=== PATIENT | male | born 1965 | race African-American/Black ===

== ENCOUNTER → 2016-06-04 | Day surgery (SDC) | payer OTHER | END | disposition home or self-care (01) | LOC: JRADIR 10:39 | PROVIDERS: ATTEND Internal Medicine Infectious Disease | PROC: 0JPT0XZ Removal of Tunneled Vascular Access Device from Trunk Subcutaneous Tissue and Fascia, Open Approach (ICD-10-PCS; principal; 2016-06-04) | DX: Z45.2 Encounter for adjustment and management of vascular access device (principal) | CPT/HCPCS: 36589 ==

== ENCOUNTER 2016-11-07 12:58 | Day surgery (SDC) | payer OTHER ==
[2016-11-05 13:03] VITALS: BMI 30.8
[2016-11-07] MEDS ORDERED: LIDOCAINE HCL 1%, 10 MG/ML (20ML VIAL) ONE (13:17)
[2016-11-07] MEDS ORDERED: MINERAL OIL 25 ML OIL ONE (13:17)
[2016-11-07] MEDS ORDERED: MIDAZOLAM HCL 2 MG/2 ML SINGLE DOSE VIAL ONE (13:49)
[2016-11-07] MEDS ORDERED: PROPOFOL 20 ML ONE ×3 (14:01→14:39)
[2016-11-07] MEDS ORDERED: LIDOCAINE HCL/PF 2% SDV 5ML VIAL ONE (14:02)
[2016-11-07] MEDS ORDERED: ceFAZolin SODIUM 1 GM VIAL IVPB ONE (14:22)
[2016-11-07] MEDS ORDERED: ceFAZolin SODIUM 1 GM VIAL ONE ×2 (14:25)
[2016-11-07] MEDS ORDERED: SUCCINYLCHOLINE CHLORIDE 200 MG/10 ML VIAL ONE (14:43)
[2016-11-07] MEDS ORDERED: ONDANSETRON 4 MG/2 ML VIAL ONE (14:51)
[2016-11-07] MEDS ORDERED: MINERAL OIL 25 ML OIL TP ONE ×3 (14:53)
[2016-11-07] MEDS ORDERED: oxyCODONE HCL 5 MG TABLET PO PRN (15:16)
[2016-11-07] MEDS ORDERED: ONDANSETRON 4 MG/2 ML VIAL IVPUSH PRN (15:16)
--- NOTE | 2016-11-07 15:21 | OP ---
Operative Note - Note: Operative Date: 11/07/16 Pre-Operative Diagnosis: chronic wound left foot Operation: left foot STSG 30 cm squared Findings: clean granulating wound Implants: none Post-Operative Diagnosis: Same as Pre-op Surgeon: Chad Lew Anesthesia: General Specimens Removed: none Estimated Blood Loss (mls): 0
[2016-11-07] MEDS ORDERED: LACTATED RINGERS SOLUTION 1,000 ML IV SCH (15:30)
--- NOTE | 2016-11-07 16:12 | OP ---
DATE OF OPERATION: 11/07/2016 PREOPERATIVE DIAGNOSIS: Chronic left foot wound. POSTOPERATIVE DIAGNOSIS: Chronic left foot wound. PROCEDURE PERFORMED: Left foot split-thickness skin graft, 30 sq cm. SURGEON: Chad Lew MD VP CARDIOVASCULAR: None. ESTIMATED BLOOD LOSS: Minimal. SPECIMEN: None. DESCRIPTION OF PROCEDURE: Patient was brought to the operating room. Sedation was administered by anesthesia. Patient's left leg and foot were prepped and draped in the usual sterile fashion. The left foot wound was curetted and measured. It was 3 x 10 cm for a total of 30 sq cm. The left anterior thigh was prepped with mineral oil. A dermatome was selected the appropriate width, and a 3 x 10 cm piece of skin was shaved from the left anterior thigh on an 0.010 inch setting and the graft was meshed to a 1:1.5. Graft was then applied to the patient's left foot and secured in place using ezra. A Xeroform dressing was applied to both the foot and the harvest site, and 4 x 4's and Tegaderms were applied to the harvest site and a bolster and Kerlix and Rafa bandage were applied to the left foot, taking care not to disturb the skin graft. The patient was transferred to PACU in stable condition. Uri [id number] MTDD
[2016-11-07 16:50] VITALS: TEMP 97.6
[2016-11-07 18:05] VITALS: BP 148/81; PULSE 71
== END 2016-11-07 18:18 | disposition home or self-care (01) ==
LOC: JASU-SURG 12:58
PROVIDERS: ATTEND Surgery Vascular Surgery
PROC: 0HBJXZZ Excision of Left Upper Leg Skin, External Approach (ICD-10-PCS; 2016-11-07)
PROC: 0HRNX74 Replacement of Left Foot Skin with Autologous Tissue Substitute, Partial Thickness, External Approach (ICD-10-PCS; principal; 2016-11-07 14:00)
DX: S91.302D Unspecified open wound, left foot, subsequent encounter (principal)
CPT/HCPCS: 94760

== ENCOUNTER 2017-07-22 20:36 | Observation (INO) | payer OTHER ==
--- NOTE | 2017-07-22 21:10 | PDOC ---
History of Present Illness - History of Present Illness Initial Comments: 07/22/17 21:59 Patient is a 52 -year-old male, with a significant past medical history of diabetes mellitus and hypertension, who was BIBA presenting with hypoglycemia. Patient states that his last meal was around 3:30/4:00. He went to bed around 6/ 7:00. His grandmother states that she noticed he was in a catatonic state, his eyes were opened but he wasnt speaking and was acting very out of the ordinary. She called 911 and states that his blood sugar was very low. He was given glucose by EMS en route. He states that he last took his diabetes medications this morning. Surgical Hx: left foot (4 toes) amputation (2016) PCP: Vanessa Fuel Cell Engineer: Josué Raygoza He denies fever, chills, nausea, vomiting, diarrhea, abdominal pain. He denies changes in his medications. <Mariama Whitehead - Last Filed: 07/22/17 22:04> - General History Source: Patient Exam Limitations: No Limitations <Solange Alvarez - Last Filed: 07/23/17 00:15> - General Chief Complaint: Blood Sugar Problem Stated Complaint: Blood Sugar Problem Time Seen by Provider: 07/22/17 21:00 Past History <Mariama Whitehead - Last Filed: 07/22/17 22:04> - Past Medical History Anemia: No Asthma: No Cancer: No Cardiac Disorders: No CVA: No COPD: No Dementia: No Diabetes: Yes (non compliant with meds.) GI Disorders: No Disorders: No HTN: Yes (non-compliant with meds) Hypercholesterolemia: No Liver Disease: No Seizures: No Thyroid Disease: No - Immunization History Immunization Up to Date: Yes - Suicide/Smoking/Psychosocial Hx Smoking History: Never smoked Have you smoked in the past 12 months: No Information on smoking cessation initiated: No Hx Alcohol Use: No Drug/Substance Use Hx: No Substance Use Type: None Hx Substance Use Treatment: No <Solange Alvarez - Last Filed: 07/23/17 00:15> - Past Medical History Allergies/Adverse Reactions: Allergies Allergy/AdvReac Type Severity Reaction Status Date / Time No Known Allergies Allergy Verified 07/22/17 20:57 Home Medications: Ambulatory Orders Atenolol [Tenormin -] 50 mg PO BID #60 tablet 03/26/16 Furosemide [Lasix] 40 mg PO DAILY 11/05/16 Glipizide [Glipizide ER] 2.5 mg PO DAILY 11/05/16 Linezolid 600 mg PO DAILY 11/05/16 Lisinopril [Prinivil] 5 mg PO DAILY 11/05/16 Nifedipine ER [Procardia XL -] 90 mg PO DAILY 11/05/16 Sodium Bicarbonate - 650 mg PO DAILY 11/05/16 Review of Systems - Review of Systems Comments:: GENERAL/CONSTITUTIONAL: +diaphoresis. No: fever, chills, weakness, loss of appetite. HEAD, EYES, EARS, NOSE AND THROAT: No: change in vision, ear pain, discharge, sore throat, throat swelling. CARDIOVASCULAR: No: chest pain, lightheadedness, palpitations, syncope RESPIRATORY: No: cough, shortness of breath, wheezing, hemoptysis, stridor. GASTROINTESTINAL: No: nausea, vomiting, abdominal cramping, diarrhea, rectal bleeding, constipation. GENITOURINARY: No: dysuria, hematuria, frequency, urgency, flank pain. MUSCULOSKELETAL: No: back pain, neck pain, joint pain, muscle swelling or pain SKIN: No: lesions, pallor, rash or easy bruising. NEUROLOGIC: No: headache, vertigo, paresthesias, weakness ENDOCRINE: No: unexplained weight gain or loss HEMATOLOGIC/LYMPHATIC: No: anemia, easy bleeding, swelling nodes 07/22/17 21:59 <Mariama Whitehead - Last Filed: 07/22/17 22:04> *Physical Exam - Vital Signs Last Vital Signs Temp Pulse Resp BP Pulse Ox 98.4 F 81 16 140/77 96 07/22/17 20:54 07/22/17 20:54 07/22/17 20:54 07/22/17 20:54 07/22/17 20:54 - Physical Exam Comments: 07/22/17 22:05 GENERAL: The patient is in no acute distress. HEAD: Normal with no signs of trauma. EYES: PERRLA, EOMI, sclera anicteric, conjunctiva clear. ENT: Ears normal, nares patent, oropharynx clear without exudates. Moist mucous membranes. NECK: Normal range of motion, supple without lymphadenopathy, JVD, or masses. LUNGS: Breath sounds equal, clear to auscultation bilaterally. No wheezes, and no crackles. HEART:Regular rate and rhythm, normal S1 and S2 without murmur, rub or gallop. ABDOMEN: Soft, nontender, normoactive bowel sounds. No guarding, no rebound. EXTREMITIES: Left foot s/p multiple toe amputations. Wound healing nicely, clear , no drainage. Normal range of motion, no edema. No clubbing or cyanosis. No erythema, or tenderness. NEUROLOGICAL: Cranial nerves II through XII grossly intact. Normal speech. No focal neurological deficits. MUSCULOSKELETAL: Back nontender to palpation, no CVA tenderness SKIN: Warm, Dry, normal turgor, no rashes or lesions noted. <Mariama Whitehead - Last Filed: 07/22/17 22:04> - Vital Signs Last Vital Signs Temp Pulse Resp BP Pulse Ox 98.4 F 81 16 140/77 96 07/22/17 20:54 07/22/17 20:54 07/22/17 20:54 07/22/17 20:54 07/22/17 20:54 <Solange Alvarez - Last Filed: 07/23/17 00:15> Heart Score/ECG Review - History History: Slightly suspicious - Electrocardiogram EKG: Normal - Age Age: 45-65 - Risk Factors Risk Factors Heart Score: Yes Hx Hypercholesterolemia, Yes Hx Hypertension, Yes Hx Diabetes, Yes Hx Obesity Based on the list above the patient has:: >/=3 risk factors or Hx atherosclerotic disease - Troponin Troponin: </= normal limit - Score Heart Score - Total: 3 <Solange Alvarez - Last Filed: 07/23/17 00:15> ED Treatment Course - LABORATORY CBC & Chemistry Diagram: 07/22/17 21:47 07/22/17 21:55 <Mariama Whitehead - Last Filed: 07/22/17 22:04> - LABORATORY CBC & Chemistry Diagram: 07/22/17 21:47 07/22/17 21:55 <Solange Alvarez - Last Filed: 07/23/17 00:15> Medical Decision Making - Medical Decision Making 07/22/17 21:23 Mr Kenney is a 52 yo M with a history of NIDDM, HTN, PVD s/p multiple toe amputations of the left foot He presents to the ER stating that this evening, his grandmother noted that he was "Talking crazy" EMS called Pt Blood Sugar noted to be 40 Pt given IV glucose Pt presents to the ER and is more coherent He tells me that he took his Glipizide this morning He had lunch at approximately 3 pm He then took a nap at 6pm He was noted by his grandmother at about 8pm to be diaphoretic and staring, not appropriately responsive No new meds No insulin No chest pain, abdominal pain, shortness of breath, nausea, vomiting, diarrhea Pt is awake and oriented He is able to answer all of my questions RRR CTA No abd tenderness Left foot amputation site, clean, no drainage Will do: Basic labs EKG Feed Anticipate discharge 07/22/17 22:18 EKG: NSR, rate of 70 bpm, axis nml, intervals nml, no st elevations or depressions 07/22/17 22:19 Laboratory Tests 07/22/17 21:47 WBC 5.8 Hgb 11.6 L Hct 34.8 L Plt Count 225 07/22/17 22:52 Laboratory Tests 05/20/17 07/01/17 07/22/17 10:21 12:00 21:47 WBC 5.8 5.8 Hgb 11.6 L D 11.6 L Hct 34.8 L 34.8 L Plt Count 241 225 Sodium 141 Potassium 5.1 Chloride 111 H Carbon Dioxide 25 Anion Gap 5 L BUN 50 H Creatinine 2.5 H Random Glucose 112 H Creatine Kinase Troponin I 07/22/17 07/22/17 21:55 21:55 WBC Hgb Hct Plt Count Sodium 138 Potassium 5.1 Chloride 108 H Carbon Dioxide 23 Anion Gap 7 L BUN 54 H Creatinine 2.5 H Random Glucose 88 D Creatine Kinase 513 H Troponin I 0.18 H D 07/23/17 00:13 Case reviewed with Hospitalist Will plan to place on observation Will closely monitor blood glucose and will repeat trop Clinical Impression: hypoglycemia, initial presentation Indeterminant troponin, initial presentation <Solange Alvarez - Last Filed: 07/23/17 00:15> *DC/Admit/Observation/Transfer - Attestations Scribe Attestion: 07/22/17 22:06 Documentation prepared by Mariama Whitehead, acting as director medical science for Solange Alvarez MD. <Mariama Whitehead - Last Filed: 07/22/17 22:04> - Discharge Dispostion Decision to Admit order: Yes <Solange Alvarez - Last Filed: 07/23/17 00:15> Diagnosis at time of Disposition: Hypoglycemia, Troponin level elevated - Discharge Dispostion Condition at time of disposition: Stable - Referrals Referrals: Jose David Mendez MD [Primary Care Provider] - - Patient Instructions - Post Discharge Activity
[2017-07-22 22:06] LABS: BASO % 0.8 % (0-2.0); EOS % 1.1 % (0-4.5); HEMATOCRIT 34.8 % (35.4-49); HEMOGLOBIN 11.6 GM/dL (11.7-16.9); LYMPH % 22.1 % (8-40); MCHC 33.3 g/dl (32.0-35.9); MEAN PLT VOLUME 9.1 fl (7.5-11.1); MONO % 5.8 % (3.8-10.2); NEUT % 70.2 % (42.8-82.8); PLATELET COUNT 225 K/MM3 (134-434); RBC 3.74 M/mm3 (4.00-5.60); WHITE BLOOD COUNT 5.8 K/mm3 (4.0-10.0)
[2017-07-22 22:37] LABS: ALBUMIN 2.9 g/dl (3.4-5.0); ANION GAP 7 (8-16); BILIRUBIN,TOTAL 0.2 mg/dL (0.2-1.0); BLOOD UREA NITROGEN 54 mg/dL (7-18); CALCIUM 8.3 mg/dL (8.5-10.1); CHLORIDE 108 mmol/L (98-107); CO2 23 mmol/L (21-32); CREATININE 2.5 mg/dL (0.7-1.3); GLUCOSE,RANDOM 88 mg/dL (74-106); POTASSIUM 5.1 mmol/L (3.5-5.1); SGOT/AST 52 U/L (15-37); SGPT/ALT 54 U/L (12-78); SODIUM 138 mmol/L (136-145); TOT PROT 6.8 g/dl (6.4-8.2)
[2017-07-22 22:38] LABS: ALK PHOS 89 U/L (45-117)
--- NOTE | 2017-07-23 01:06 | PN ---
Teaching Attending Note Name of Resident: Miley Camacho ATTENDING PHYSICIAN STATEMENT I saw and evaluated the patient. I reviewed the resident's note and discussed the case with the resident. I agree with the resident's findings and plan as documented. SUBJECTIVE: Patient is a 52 -year-old man, with a significant past medical history of diabetes mellitus, amputation of left foot toes 2 to 5 and hypertension, who presented with symptomatic hypoglycemia. Patient states that his last meal was around 3:30/4:00. He went to bed around 6/7:00. His grandmother states that she noticed he was in a catatonic state, diaphoretic, his eyes were opened but he wasnt speaking and was acting very out of the ordinary. She called 911 and states that his blood sugar was very low. He was given glucose by EMS en route. He states that he last took his diabetes medications this morning. OBJECTIVE: Alert and in no acute distress. Vital Signs Period Temp Pulse Resp BP Sys/Melara Pulse Ox Last 24 Hr 98.4 F 81 16 140/77 96 HEENT: No Jaundice, eye redness or discharge, PERRLA, EOMI. Normocephalic, atraumatic. External ears are normal and hearing is grossly intact. No nasal discharge. Neck: Supple, nontender. No palpable adenopathy or thyromegaly. No JVD Chest: Good effort. Clear to auscultation and percussion. Heart: Regular. No S3, rub or murmur Abdomen: Not distended, soft, nontender and no HSM. No rebound or guarding. Normoactive bowel sounds. Ext: Amputation of toes 2 to 5 on the left foot with dystrophic changes on the big toe; hyperpigmented skin with stasis dermatitis changes. Poor peripheral pulses. No pitting leg edema. Skin: Warm and dry. No petechiae, rash or ecchymosis. Neuro: Alert. Oriented x3. CN 2-12 grossly intact. Sensation grossly intact in all four extremities and DTR are symmetric. Home Medications Medication Instructions Recorded Atenolol [Tenormin -] 50 mg PO BID #60 tablet 03/26/16 Furosemide [Lasix] 40 mg PO DAILY 11/05/16 Glipizide [Glipizide ER] 2.5 mg PO DAILY 11/05/16 Linezolid 600 mg PO DAILY 11/05/16 Lisinopril [Prinivil] 5 mg PO DAILY 11/05/16 Nifedipine ER [Procardia XL -] 90 mg PO DAILY 11/05/16 Sodium Bicarbonate - 650 mg PO DAILY 11/05/16 Abnormal Lab Results 07/22/17 07/22/17 07/22/17 21:47 21:55 21:55 RBC 3.74 L Hgb 11.6 L Hct 34.8 L Chloride 108 H Anion Gap 7 L BUN 54 H Creatinine 2.5 H Calcium 8.3 L AST 52 H Creatine Kinase 513 H CK-MB (CK-2) 9.391 H Troponin I 0.18 H D Albumin 2.9 L ASSESSMENT AND PLAN: 1. Symptomatic hypoglycemia - Patient will be admitted as an observation. Hypoglycemia most likely due reduced insulin catabolism and excretion by failing kidneys. Needs reduced dose of Januvia and glipizide and continue frequent assessments for dose reduction as his CKD progresses. 2. CKD stage 3 - Likely due to NIDDM. Has gotten eye care and foot care. CKD likely cause of anemia, but will do basic anemia work up and exclude GI blood loss. Improve BP control to slow progression of CKD. 3. Elevated troponin - Likely due to CKD and possibly demand ischemia. Will get serial EKG and troponins. No other evidence of ACS at this time. 4. DVT prophylaxis - Heparin 5000u sq tid 5. Advance directives - Full code
--- NOTE | 2017-07-23 01:12 | HP ---
CHIEF COMPLAINT: altered mental state, hypoglycemia PCP: Dr. Mendez Printing Pressman: Dr. Cheema Renal: Dr. Raygoza Ward Service Supervisor: Dr. Guevara HISTORY OF PRESENT ILLNESS: 52yo man with PMH of HTN, HLD, NIDDM, PVD s/p partial L foot amputation (2015), CKD stage 3, possible diastolic CHF who BIBA after patient was noted be obtunded and found to have BG 42 at ~6PM Friday (07/22). Patient checks his BG every morning and reports that it was been ~100. Recalls last time was hypoglycemic was during hospitalization in 2016. He took Januvia and Glipizide as directed in the morning (denies any extra or recent skipped doses) and ate a typical lunch at 3PM. At ~6PM patient's grandmother, with whom he lives with, found him diaphoretic, shaking, confused, and hypoglycemic. She called 911 and on arrival EMS gave the patient 1 amp of glucose. Patient was recently started on Januvia 1-2 months ago. His previous regimen was Glipizide and Trajenta, but the later was no longer covered by his insurance. Denies any fever, chills, nausea, vomiting, abdominal pain, or urinary symptoms. No chest pain, palpitations, increased fatigue or weakness, or leg swelling. While in the ED, patient's mental status improved and repeat BG was 88. Labs were notable for mildly elevated Troponin I (0.18) with normal EKG. 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 Guevara) Social History: does not work, lives with grandmother, walks with rolling walker at baseline Smoking: never Alcohol: social Drugs: none Family History: non-contributory Allergies: No Known Allergies Allergy (Verified 07/22/17 20:57) HOME MEDICATIONS: Home Medications Medication Instructions Recorded Atenolol [Tenormin -] 50 mg PO BID #60 tablet 03/26/16 Furosemide [Lasix] 40 mg PO DAILY 11/05/16 Glipizide [Glipizide ER] 2.5 mg PO DAILY 11/05/16 Linezolid 600 mg PO DAILY 11/05/16 Lisinopril [Prinivil] 5 mg PO DAILY 11/05/16 Nifedipine ER [Procardia XL -] 90 mg PO DAILY 11/05/16 Sodium Bicarbonate - 650 mg PO DAILY 11/05/16 REVIEW OF SYSTEMS CONSTITUTIONAL: +diaphoresis Absent: fever, chills, generalized weakness, malaise, loss of appetite, weight change HEENT: Absent: rhinorrhea, nasal congestion, throat pain, throat swelling, difficulty swallowing, mouth swelling, ear pain, eye pain, visual changes CARDIOVASCULAR: Absent: chest pain, syncope, palpitations, irregular heart rate, lightheadedness , peripheral edema RESPIRATORY: Absent: cough, shortness of breath, dyspnea with exertion, orthopnea, wheezing, stridor, hemoptysis GASTROINTESTINAL: Absent: abdominal pain, abdominal distension, nausea, vomiting, diarrhea, constipation, melena, hematochezia GENITOURINARY: Absent: dysuria, frequency, urgency, hesitancy, hematuria, flank pain, genital pain MUSCULOSKELETAL: Absent: myalgia, arthralgia, joint swelling, back pain, neck pain SKIN: Absent: rash, itching, pallor HEMATOLOGIC/IMMUNOLOGIC: Absent: easy bleeding, easy bruising, lymphadenopathy, frequent infections ENDOCRINE: Absent: unexplained weight gain, unexplained weight loss, heat intolerance, cold intolerance NEUROLOGIC: +mental status changes Absent: headache, focal weakness or paresthesias, dizziness, unsteady gait, seizure, , bladder or bowel incontinence PSYCHIATRIC: Absent: anxiety, depression, suicidal or homicidal ideation, hallucinations. PHYSICAL EXAMINATION Vital Signs - 24 hr 07/22/17 20:54 Temperature 98.4 F Pulse Rate 81 Respiratory 16 Rate Blood Pressure 140/77 O2 Sat by Pulse 96 Oximetry (%) GENERAL: aaox3, nad HEENT: PERRL, EOMI, sclera anicteric, conjunctiva clear, oropharynx clear without exudates, mmm NECK: supple LUNGS: CTAB HEART: rrr, normal s1/s2, no m/r/g ABDOMEN: soft, NTND UPPER EXTREMITIES: 2+ radial pulses, wwp, no edema LOWER EXTREMITIES: 2+ DP pulses, wwp, chronic venous stasis dermatitis L >R with hyperpigmentation and crusting, +discoloration and thickening of toe nails , no erythema, ulcers, or edema NEUROLOGICAL: Cranial nerves II-XII intact. Normal speech. PSYCHIATRIC: Cooperative. Good eye contact. Appropriate mood and affect. SKIN: Warm, dry, normal turgor, no rashes or lesions noted CBC, BMP 07/22/17 21:47 07/22/17 21:55 Troponin, BNP 07/22/17 21:55 Troponin I 0.18 H D EKG: NSR, rate 70, normal axis, intervals, no acute ischemic ST/T abnormalities , QTc 436 ASSESSMENT/PLAN: 52yo man with PMH of HTN, HLD, NIDDM, PVD s/p partial L foot amputation (2015), CKD stage 3 who presents with symptomatic hypoglycemia and found to have mildly elevated Troponin. #symptomatic hypoglycemia, likely 2/2 to worsening renal function -Hold patient's oral diabetic agents, will need to be discharged with close follow-up for adjustment in medication as CKD progresses -BGM ACHS #tropinemia, (0.18), likely due to CKD and/or demand ischemia; low suspicion for ACS given EKG wnl, lack of symptoms, Heart score 3, will observe to r/o -Serial Troponins -Repeat EKG in AM #HTN - home meds need to be confirmed with Pharmacy in AM -Patient endorsed following meds to be resumed in AM: * Atenolol 50mg BID * Procardia Xl 90mg PO qd * Lasix 40mg PO qd #normocytic anemia, likely from CKD -Check Fe studies -Stool guaiac #CKD stage 3 #FEN PO intake lytes wnl Na/DM diet #PPX DVT - early ambulation, SCD's B/L #DISPO: obs m/s FULL code d/w Dr. Faustin Visit type - Emergency Visit Emergency Visit: Yes ED Registration Date: 07/23/17 Care time: The patient presented to the Emergency Department on the above date and was hospitalized for further evaluation of their emergent condition. - New Patient This patient is new to me today: Yes Date on this admission: 07/23/17 - Critical Care Critical Care patient: No Hospitalist Screening - Colonoscopy Questionnaire Colonoscopy Questionnaire: Colonoscopy Questionnaire - Patient: 50 - 75 years old and never had a screening colonoscopy: Unknown History of colon or rectal polyps, or CA: Unknown History of IBD, Crohn's disease or UC: Unknown History of abdominal radiation therapy as a child: Unknown - Relative: 1 with colon or rectal CA, or polyps at age 60 or younger: Unknown Colon or rectal CA diagnosed at age 45 or younger: Unknown Multiple relatives with colon or rectal CA: Unknown - Outcome: Screening Result: Negative Screen
[2017-07-23] MEDS ORDERED: DEXTROSE 50%-WATER - 25 GM/50 ML VIAL IVPUSH ONE (02:22)
[2017-07-23] MEDS ORDERED: DEXTROSE 50%-WATER 25 GM/50 ML DISP.SYRIN ONE (02:37)
[2017-07-23] MEDS ORDERED: HEPARIN NA (PORCINE) 5,000 UNITS/ML 1ML VIAL ONE (06:02)
[2017-07-23] MEDS: HEPARIN NA (PORCINE) 5,000 UNITS/ML 1ML VIAL SQ SCH ×2 (06:26→15:11)
[2017-07-23 06:39] LABS: URINE APPEARANCE CLEAR; URINE BILIRUBIN NEGATIVE (<2.0 mg/dL); URINE COLOR STRAW; URINE GLUCOSE (UA) NEGATIVE (NEGATIVE); URINE KETONE NEGATIVE (NEGATIVE); URINE LEUK ESTERASE NEGATIVE (NEGATIVE); URINE NITRITE NEGATIVE (NEGATIVE); URINE UROBILINOGEN NEGATIVE mg/dL (0.2-1.0)
[2017-07-23] MEDS ORDERED: INSULIN SLIDING SCALE (NOVOLOG) 1 VIAL SQ SCH (07:00)
[2017-07-23 07:15] LABS: URINE PROTEIN 2+ (NEGATIVE)
[2017-07-23 07:25] LABS: URINE BACTERIA RARE /hpf (NONE SEEN)
[2017-07-23] MEDS ORDERED: ATENOLOL 50 MG TABLET (FP) PO SCH (10:00)
[2017-07-23] MEDS ORDERED: FUROSEMIDE 40 MG TABLET (FP) PO SCH (10:00)
[2017-07-23] MEDS ORDERED: NIFEdipine E.R. 90 MG TABLET (FP) PO SCH (10:00)
[2017-07-23 11:30] VITALS: BMI 29.7
--- NOTE | 2017-07-23 13:20 | EKG ---
Test Reason : Blood Pressure : / mmHG Vent. Rate : 078 BPM Atrial Rate : 078 BPM P-R Int : 204 ms QRS Dur : 084 ms QT Int : 374 ms P-R-T Axes : 071 057 086 degrees QTc Int : 426 ms NORMAL SINUS RHYTHM NORMAL ECG WHEN COMPARED WITH ECG OF 22-JUL-2017 21:47, NO SIGNIFICANT CHANGE WAS FOUND Confirmed by ANA BANKS MD ([id number]) on 07/23/2017 1:20:33 PM Referred By: Confirmed By:AAN BANKS MD
--- NOTE | 2017-07-23 13:22 | EKG ---
Test Reason : Blood Pressure : / mmHG Vent. Rate : 070 BPM Atrial Rate : 070 BPM P-R Int : 198 ms QRS Dur : 088 ms QT Int : 404 ms P-R-T Axes : 071 059 089 degrees QTc Int : 436 ms NORMAL SINUS RHYTHM NORMAL ECG WHEN COMPARED WITH ECG OF 24-OCT-2016 14:26, NO SIGNIFICANT CHANGE WAS FOUND Confirmed by ANA BANKS MD ([id number]) on 07/23/2017 1:22:05 PM Referred By: Confirmed By:ANA BANKS MD
[2017-07-23 13:24] VITALS: TEMP 98.4
--- NOTE | 2017-07-23 13:25 | CON.CARD ---
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 Pt improved in the ER and is now admitted. Pt seen and examined in the ICU in nad. awake alert and oriented. grandmother at bedside. states he is feeling back to baseline. denies chest pain, sob, palpitations. no pnd, orthopnea. no change in chronic intermittent b/l LE edema. - History Source History Provided By: Patient Limitations to Obtaining History: No Limitations - Past Medical History Cardio/Vascular: Yes: CHF, HTN, Hyperlipdemia, Other Infectious Disease: Yes: Other (OM) Endocrine: Yes: Diabetes Mellitus - Alcohol/Substance Use Hx Alcohol Use: No - Smoking History Smoking history: Never smoked Have you smoked in the past 12 months: No - Social History ADL: Independent History of Recent Travel: No Home Medications - Allergies Allergies/Adverse Reactions: Allergies Allergy/AdvReac Type Severity Reaction Status Date / Time No Known Allergies Allergy Verified 07/22/17 20:57 - Home Medications Home Medications: Ambulatory Orders Atenolol [Tenormin -] 50 mg PO BID #60 tablet 03/26/16 Furosemide [Lasix] 40 mg PO DAILY 11/05/16 Glipizide [Glipizide ER] 2.5 mg PO DAILY 11/05/16 Linezolid 600 mg PO DAILY 11/05/16 Lisinopril [Prinivil] 5 mg PO DAILY 11/05/16 Nifedipine ER [Procardia XL -] 90 mg PO DAILY 11/05/16 Sodium Bicarbonate - 650 mg PO DAILY 11/05/16 Family Disease History - Family Disease History Family Disease History: Diabetes: Grandparent Review of Systems - Review of Systems Constitutional: reports: Lethargy. denies: No Symptoms, Chills, Diaphoresis, Fever, Loss of Appetite, Malaise, Night Sweats, Unintentional Wgt. Loss, Weakness, Other Eyes: denies: No Symptoms, Blind Spots, Blurred Vision, Double Vision, Eye Pain , Floaters, Photophobia, Recent Change in Vision, Other HENT: denies: No Symptoms, Difficult Swallowing, Ear Discharge, Ear Pain, Epistaxis, Gingival Bleeding, Hearing Loss, Mouth Swelling, Nasal Congestion, Ocular Prosthesis, Throat Pain, Toothache, Ringing in Ears, Other Neck: denies: No Symptoms, Decreased ROM, Lumps, Pain on Movement, Stiffness, Swollen Glands, Tenderness, Other Cardiovascular: denies: No Symptoms, Chest Pain, Edema, Palpitations, Shortness of Breath, Other Respiratory: denies: No Symptoms, Cough, Exercise Intolerance, Hemoptysis, Orthopnea, PND, Snoring, SOB, SOB on Exertion, Wheezing, Other Gastrointestinal: denies: No Symptoms, Abdominal Pain, Bloating, Constipation, Diarrhea, Dysphagia, Indigestion, Melena, Nausea, Rectal Bleeding, Vomiting, Vomiting Blood, Other Genitourinary: denies: No Symptoms, Burning, Discharge, Dysuria, Flank Pain, Frequency, Hematuria, Incontinence, Lesions, Menses, Pain, Testicular Mass, Testicular Pain, Testicular Swelling, Urgency, Vaginal Bleeding, Other Breasts: denies: No Symptoms Reported, See HPI, Breast Implants, Discharge from Nipple, Lumps, Pain, Skin Changes, Other Musculoskeletal: denies: No Symptoms, Back Pain, Crepitus, Decreased ROM, Extremity Pain, Joint Pain, Joint Swelling, Muscle Pain, Muscle Cramps, Muscle Weakness, Other Integumentary: denies: No Symptoms, Blister, Bruising, Change in Color, Eczema, Erythema, Incision, Lesions, Lump, Pallor, Pruritis, Rash, Wound, Other Neurological: reports: Change in LOC. denies: No Symptoms, Change in Speech, Confusion, Dizziness, Headache, Incoordination, Numbness, Parasthesia, Pre- Existing Deficit, Seizure, Syncope, Tremors, Unsteady Gait, Weakness, Other Endocrine: denies: No Symptoms, Excessive Sweating, Flushing, Increased Hunger, Increased Thirst, Intolerance to Cold, Intolerance to Heat, Unexplained Weight Gain, Unexplained Weight Loss, Other Hematology/Lymphatic: denies: No Symptoms, Easily Bruised, Excessive Bleeding, Swollen Glands, Other Psychiatric: denies: No Symptoms, Altered Sleep Pattern, Anxiety, Depression, Hallucinations, Panic, Paranoia, Suicidal, Other - Risk Factors Known Risk Factors: Yes: Diabetes Mellitus, Hypercholesterolemia, Hypertension Vital Signs: Vital Signs Temperature 98.4 F 07/23/17 13:23 Pulse Rate 76 07/23/17 13:23 Respiratory Rate 16 07/23/17 13:23 Blood Pressure 178/92 07/23/17 13:23 O2 Sat by Pulse Oximetry (%) 99 07/23/17 11:47 Constitutional: Yes: Well Nourished, No Distress, Calm Eyes: Yes: WNL, Conjunctiva Clear, EOM Intact HENT: Yes: WNL, Atraumatic, Normocephalic Neck: Yes: WNL, Supple, Trachea Midline Respiratory: Yes: WNL, Regular, CTA Bilaterally. No: Rales, Rhonchi, SOB, Wheezes Gastrointestinal: Yes: WNL, Normal Bowel Sounds, Soft. No: Distention, Tenderness Cardiovascular: Yes: Regular Rate and Rhythm. No: Bradycardia, Pulse Irregular , Gallop, Rub, Varicosities JVD: No Carotid Bruit: No PMI: Non-Displaced Heart Sounds: Yes: S1, S2. No: Split S2, S3, S4, Clicks, Gallop, Rub, Bruit Murmur: No: Systolic Murmur, Diastolic Murmur Extremities: Yes: Amputation Edema: No Peripheral Pulses WNL: No Neurological: Yes: Alert, Oriented Psychiatric: Yes: Alert, Oriented - Other Data Labs, Other Data: CBC, BMP 07/22/17 21:47 07/22/17 21:55 Troponin, BNP 07/22/17 07/23/17 07/23/17 21:55 10:00 12:25 Troponin I 0.18 H D 0.19 H 0.18 H Troponin, BNP 07/22/17 07/23/17 07/23/17 21:55 10:00 12:25 Troponin I 0.18 H D 0.19 H 0.18 H ekg-nsr 78bpm, no sig ST abnl Echo: Report Reviewed, Image Reviewed Imaging - Results Chest X-ray: Report Reviewed, Image Reviewed EKG: Report Reviewed, Image Reviewed Other: Report Reviewed, Image Reviewed (tele-NSR, no events recorded) Assessment/Plan 52 year old man with a history of HTN, HLD, DMII, PAD, diabetic foot ulcers with h/o partial foot amputation 09/2015, CKD, possible diastolic CHF, admitted with AMS and hypoglycemia, incidentally noted to have a mildly elevated troponin and CASSIE on CKD. Pt improved in the ER and is now admitted. Pt seen and examined in the ICU in nad. awake alert and oriented. grandmother at bedside. states he is feeling back to baseline. denies chest pain, sob, palpitations. no pnd, orthopnea. no change in chronic intermittent b/l LE edema. Elevated troponin -minimally elevated and did not trend up -no reported chest pain or sob -EKG does not show ischemia -no events on tele -unlikely ACS -Echo images reviewed at bedside, normal LV systolic function -most likely troponin elevated in setting of CKD and possibly related to hypoglycemia/infection -No additional inpatient cardiac work up needed at this time -Please call with any additional questions HTN above goal -cont home meds and adjust as needed Chronic LE edema-currently at baseline, no sig edema, likely multifactorial, possible component of diastolic CHF, venous insufficiency -lungs are clear -plan for close outpatient follow up -vascular f/up Previous Outpatient work up: Echo 02/13/16-normal LV and RV size and function, no pericardial effusion, mild pulm htn Carotid doppler 02/13/16-moderate b/l plaque with no sig stenosis Abd AAA screening 02/13/16-no evidence of abdominal aortic aneursym He was planned for a non-urgent pharmacologic nuclear stress test at my previous office but unclear if it was completed. Please call with any additional questions.
[2017-07-23] MEDS ORDERED: LISINOPRIL 5 MG TABLET (FP) PO ONE (16:30)
--- NOTE | 2017-07-23 17:13 | DS ---
Physical Examination Vital Signs: Vital Signs Temperature 98.4 F 07/23/17 13:23 Pulse Rate 80 07/23/17 16:39 Respiratory Rate 18 07/23/17 16:39 Blood Pressure 167/87 07/23/17 16:39 O2 Sat by Pulse Oximetry (%) 99 07/23/17 11:47 Labs: CBC, BMP 07/22/17 21:47 07/22/17 21:55 Discharge Summary Reason For Visit: HYPOGLYCEMIA ELEVATED TROPONIN LEVEL Current Active Problems Hypoglycemia (Acute) Troponin level elevated (Acute) Hospital Course: Discussed with Dr. Cheema who recommends discharging the patient and NOT continuing glipizide. The patient is scheduled to follow-up in Dr. Cheema's office tomorrow, July 24, at 12pm. Condition: Improved - Instructions Diet, Activity, Other Instructions: Please return to the ED with new, persistent, or worsening symptoms. Please follow-up with providers as indicated. You are scheduled to follow-up with Dr. Cheema in the office tomorrowJuly 24 at 12pm. Do NOT take your Glipizide until you are reevaluated by endocrinology. Check your blood sugar level before each meal and at bedtime. Write down the sugar level and bring it to Dr. Cheema's office tomorrow. Referrals: Jose David Mendez MD [Primary Care Provider] - (Please follow-up with your primary care provider within 1 week. ) Josué Raygoza MD [Staff Physician] - (Please follow-up with nephrology (Dr. Raygoza) within 1 week for further management of your chronic kidney disease. ) Yaya Cheema MD [Staff Physician] - (Please follow-up with endocrinology tomorrowJuly 24 at 12:00pm) Disposition: VNS/HOME HEALTH CARE - Home Medications Comprehensive Discharge Medication List: Ambulatory Orders Atenolol [Tenormin -] 50 mg PO BID #60 tablet 03/26/16 Furosemide [Lasix] 40 mg PO DAILY 11/05/16 Lisinopril [Prinivil] 5 mg PO DAILY 11/05/16 Nifedipine ER [Procardia XL -] 90 mg PO DAILY 11/05/16 Sodium Bicarbonate - 650 mg PO DAILY 11/05/16
[2017-07-23 17:59] VITALS: BP 150/80; PULSE 76
[2017-07-24 08:11] LABS: SERUM IRON SATURATION 43 % (15-55); TOTAL IRON BINDING CAPACITY 196 ug/dL (250-450); TRANSFERRIN 154 mg/dL (200-370); UIBC 112 ug/dL (111-343)
== END 2017-07-23 19:04 | disposition home health service (06) ==
LOC: JER 20:36 → JERBED 07-23 02:01 → J2W 07-23 11:13
PROVIDERS: ADMIT Internal Medicine; ATTEND Registered Nurse
PROC: 3E033GC Introduction of Other Therapeutic Substance into Peripheral Vein, Percutaneous Approach (ICD-10-PCS; principal; 2017-07-23)
PROC: 3E013GC Introduction of Other Therapeutic Substance into Subcutaneous Tissue, Percutaneous Approach (ICD-10-PCS; 2017-07-23)
DX: E11.649 Type 2 diabetes mellitus with hypoglycemia without coma (principal); E11.22 Type 2 diabetes mellitus with diabetic chronic kidney disease; I12.9 Hypertensive chronic kidney disease with stage 1 through stage 4 chronic kidney disease, or unspecified chronic kidney disease; I73.9 Peripheral vascular disease, unspecified; N18.3 Chronic kidney disease, stage 3 (moderate); E78.5 Hyperlipidemia, unspecified; R77.8 Other specified abnormalities of plasma proteins; Z89.422 Acquired absence of other left toe(s); Z79.84 Long term (current) use of oral hypoglycemic drugs; Z91.14 Patient's other noncompliance with medication regimen
CPT/HCPCS: 36415; 80053; 81003; 81015; 82550; 82553; 82728; 82962; 83036; 83540; 83550; 84466; 84484; 85025; 93005; 93010; 93306-TC; 96372; 96374; 99284-25; G0378; J1644

== ENCOUNTER 2018-12-04 16:38 | Emergency (ER) | payer OTHER ==
[2018-12-04 16:50] VITALS: BP 139/74; PULSE 77; TEMP 98.2; BMI 35.4
[2018-12-04 17:34] LABS: BASO % 1.5 % (0-2.0); EOS % 1.3 % (0-4.5); HEMATOCRIT 34.8 % (35.4-49); HEMOGLOBIN 11.4 GM/dL (11.7-16.9); LYMPH % 28.8 % (8-40); MCH 31.1 pg (25.7-33.7); MCHC 32.7 g/dl (32.0-35.9); MEAN CELL VOLUME 95.1 fl (80-96); MEAN PLT VOLUME 9.4 fl (7.5-11.1); MONO % 5.7 % (3.8-10.2); NEUT % 62.7 % (42.8-82.8); PLATELET COUNT 233 K/MM3 (134-434); RBC 3.66 M/mm3 (4.00-5.60); RDW 14.3 % (11.9-15.9); WHITE BLOOD COUNT 7.3 K/mm3 (4.0-10.0)
[2018-12-04 17:36] LABS: EPI CELLS 3.3 /HPF (0-5/HPF); HYALINE CASTS 35 /lpf (0-8); PH,URINE 5.5 (5.0-8.0); URINE APPEARANCE CLOUDY; URINE BACTERIA 3317.8 /hpf (NEGATIVE); URINE BILIRUBIN NEGATIVE (NEGATIVE); URINE COLOR YELLOW; URINE GLUCOSE (UA) NEGATIVE (NEGATIVE); URINE KETONE NEGATIVE (NEGATIVE); URINE LEUK ESTERASE 2+ (NEGATIVE); URINE NITRITE NEGATIVE (NEGATIVE); URINE PROTEIN 3+ (NEGATIVE); URINE RBC 5 /hpf (0-4); URINE UROBILINOGEN 0.2 mg/dL (0.2-1.0); URINE WBC 139 /hpf (0-5)
[2018-12-04 18:06] LABS: ALBUMIN 3.3 g/dl (3.4-5.0); BILIRUBIN,TOTAL 0.3 mg/dL (0.2-1); BLOOD UREA NITROGEN 40.7 mg/dL (7-18); CALCIUM 8.9 mg/dL (8.5-10.1); POTASSIUM 5.4 mmol/L (3.5-5.1); TOT PROT 7.6 g/dl (6.4-8.2)
--- NOTE | 2018-12-04 19:59 | PDOC ---
History of Present Illness - General Chief Complaint: Revisit, Lab Variance Stated Complaint: MD SENT OVER FOR BLOOD TEST Time Seen by Provider: 12/04/18 16:46 Past History - Past Medical History Allergies/Adverse Reactions: Allergies Allergy/AdvReac Type Severity Reaction Status Date / Time No Known Allergies Allergy Verified 12/04/18 16:46 Home Medications: Ambulatory Orders Atenolol [Tenormin -] 50 mg PO BID #60 tablet 03/26/16 Furosemide [Lasix] 40 mg PO DAILY 11/05/16 Nifedipine ER [Procardia XL -] 90 mg PO DAILY 11/05/16 Sodium Bicarbonate - 650 mg PO DAILY 11/05/16 Januvia 25 mg PO DAILY 06/05/18 Becaplermin [Regranex] 15 gm TP DAILY #1 gel..gram. 07/03/18 Anemia: No Asthma: No Cancer: No Cardiac Disorders: No CVA: No COPD: No Dementia: No Diabetes: Yes GI Disorders: No Disorders: No HTN: Yes Hypercholesterolemia: Yes Liver Disease: No Seizures: No Thyroid Disease: No - Immunization History Immunization Up to Date: Yes - Psycho Social/Smoking Cessation Hx Smoking History: Never smoked Have you smoked in the past 12 months: No Hx Alcohol Use: No Drug/Substance Use Hx: No Substance Use Type: None Hx Substance Use Treatment: No *Physical Exam - Vital Signs Last Vital Signs Temp Pulse Resp BP Pulse Ox 98.2 F 77 17 139/74 97 12/04/18 16:47 12/04/18 16:47 12/04/18 16:47 12/04/18 16:47 12/04/18 16:47 ED Treatment Course - LABORATORY CBC & Chemistry Diagram: 12/04/18 17:21 12/04/18 17:21 - ADDITIONAL ORDERS Additional order review: Laboratory Results 12/04/18 12/04/18 17:21 17:21 Sodium 137 Potassium 5.4 H Chloride 112 H Carbon Dioxide 22 Anion Gap 3 L BUN 40.7 H Creatinine 3.0 H Est GFR (CKD-EPI)AfAm 26.64 Est GFR (CKD-EPI)NonAf 22.99 Random Glucose 129 H Calcium 8.9 Total Bilirubin 0.3 AST 46 H ALT 72 H Alkaline Phosphatase 107 Total Protein 7.6 Albumin 3.3 L Urine Color Yellow Urine Appearance Cloudy Urine pH 5.5 Ur Specific Gardner 1.014 Urine Protein 3+ H Urine Glucose (UA) Negative Urine Ketones Negative Urine Blood Trace Urine Nitrite Negative Urine Bilirubin Negative Urine Urobilinogen 0.2 Ur Leukocyte Esterase 2+ H Urine WBC (Auto) 139 Urine RBC (Auto) 5 Urine Casts (Auto) 35 U Pathogenic Cast Auto None seen U Epithel Cells (Auto) 3.3 Urine Bacteria (Auto) 3317.8 12/04/18 17:21 RBC 3.66 L MCV 95.1 MCHC 32.7 RDW 14.3 MPV 9.4 Neutrophils % 62.7 Lymphocytes % 28.8 D Monocytes % 5.7 Eosinophils % 1.3 Basophils % 1.5 Medical Decision Making - Medical Decision Making 12/04/18 20:17 53yo M hx NIDDM, HTN, HLD, and obesity sent by Dr Estrada for lab recheck due to high K on labs yesterday. Pt is in USOH and denies any complaints. Pt states labs yesterday were just a normal check-up. Denies fever, chills, fatigue, headache, dizziness, numbness/tingling, weakness, vision changes, shortness of breath, cough, chest pain, palpitations, leg swelling, abdominal pain, blood in stool, diarrhea, constipation, nausea, vomiting, dysuria, hematuria, polyuria, polydipsia, confusion, recent illness, sick contacts, recent travel. ROS: Constitutional: Positive for high K. Negative for chills, fever, fatigue, diaphoresis. HENT: Negative for sore throat, rhinorrhea, congestion. Eyes: Negative for visual disturbance. Respiratory: Negative for shortness of breath, cough, and wheezing. Cardiovascular: Negative for chest pain, palpitations, and leg swelling. Gastrointestinal: Negative for abdominal pain, blood in stool, constipation, diarrhea, nausea, and vomiting. Genitourinary: Negative for dysuria, flank pain, and hematuria. Musculoskeletal: Negative for myalgias, back pain, and neck pain. Skin: Negative for rash. Neurological: Negative for light-headedness, dizziness, vertigo, syncope, weakness, numbness and headaches. Psychiatric/Behavioral: Negative for behavioral problems and confusion. PE: Gen: Alert, NAD, comfortable-appearing, obese HEENT: PERRL, EOMI, MMM, NCAT. No conjunctival pallor. Sclera are non-icteric. CV: Regular rate and rhythm. No murmurs, rubs, or gallops. PULM: No resp distress. CTAB, no wheezes, rales, or rhonchi. ABD: soft, NT/ND, no rebound tenderness or guarding, no CVA tenderness. MSK: No bony deformities. 2+ pulses in all extremities. NEURO: AAOx3. PERRL. No gross CN deficits. Strength and sensation grossly intact throughout. EXTREMITIES: No cyanosis. No clubbing. No edema. No calf tenderness. PSYCH: Normal mood and thought pattern. SKIN: Warm and dry. Normal capillary refill. No rashes. No jaundice. Labs reviewed. Of note, K 5.4, AG 3, BUN 40.7 (baseline this year), Cr 3.0 ( baseline this year), gluc 129, AST 46, ALT 72, UA positive for UTI and 3+ protein (UA positive for UTI last visit as well, no culture done). EKG reviewed: NSR, 75bpm, normal axis, normal intervals, TWIs in I/aVL, mildly peaked T waves in V2/V3, no significant changes compared to 07/23/17 No sx or EKG changes indicating need for hyperkalemia tx. Not in DKA, gluc 129. Renal function at baseline - will need further evaluation and close f/u with nephrology (pt's warm in [place]). -[facility] -Call warm in [place] for close f/u and other recs -Dispo: likely d/c home w/close f/u Paged Dr [facility] [place]. 12/04/18 20:[address] Rivera virtualization consultant for Dr Raygoza. Agree with plan to d/c home, recommend strict diet avoiding potassium, tell pt to call office on Friday AM to make appt for Friday AM. Will dc home with PCP and warm in f/u. Return precautions given. Pt understands all dc instructions and all questions were answered. Discharge - Discharge Information Problems reviewed: Yes Clinical Impression/Diagnosis: Hyperkalemia Condition: Stable Disposition: HOME - Admission No - Follow up/Referral Referrals: Josué Raygoza MD [Staff Physician] - - Patient Discharge Instructions Patient Printed Discharge Instructions: DI for Hyperkalemia Additional Instructions: You have been seen in the Emergency Department for hyperkalemia (high potassium) . Your EKG and labs show no signs concerning for an emergent condition, but your potassium is a little high (5.4). You will need close follow-up with your warm in (kidney doctor) - call Dr Raygoza's office on Friday morning to make an appointment for that day. Also follow-up with your primary care doctor within 1 week. There is also bacteria in your urine. We have sent a culture to the lab but it will take a few days to result. Make sure you tell your primary care doctor to check for this result at your appointment this week. Until you see your doctor, avoid foods with lots of potassium, such as fresh fruit and vegetables, dried fruit, orange juice, fish, turkey, and beef. Return to the ED immediately if you experience chest pain, difficulty breathing , dizziness, or any other new or worsening symptom. - Post Discharge Activity
--- NOTE | 2018-12-04 20:48 | PDOC ---
Documentation entered by Tito Rodriguez SCRIBE, acting as scribe for Niyah Ramírez MD. Niyah Ramírez MD: This documentation has been prepared by the Jennifer witt Xhesika, SCRIBE, under my direction and personally reviewed by me in its entirety. I confirm that the documentation accurately reflects all work, treatment, procedures, and medical decision making performed by me. Attending Attestation - Resident Resident Name: AlvaroAlisa - ED Attending Attestation I have performed the following: I have examined & evaluated the patient, The case was reviewed & discussed with the resident, I agree w/resident's findings & plan, Exceptions are as noted - HPI HPI: 12/04/18 20:13 The patient is a 53 year old male with a significant PMH of HTN, DM, and HLD who presents to the emergency department sent by Dr. Jensen for hyperkalemia. Pt notes he had lab work done yesterday at PCP office, received a call today, was told his potassium was elevated and he should come to the ED for further blood work. Patient states he was previously not compliant with any of his medication, however, he currently is. Patient denies any complaints here in the ED. The patient denies chest pain, shortness of breath, headache and dizziness. Denies fever, chills, cough, nausea, vomiting, diarrhea and constipation. Denies dysuria, frequency, urgency and hematuria. Allergies: NKDA Surgical Hx: left foot (4 toes) amputation (2016) PCP: [facility] [employer] Sales Consultant: Josué Raygoza - Physicial Exam PE: 12/04/18 20:14 GENERAL: Awake, alert, and fully oriented, in no acute distress EYES: PERRLA, EOMI, sclera anicteric, conjunctiva clear ENT: Oropharynx clear without exudates. Moist mucosa NECK: Normal ROM, supple, no lymphadenopathy, JVD, or masses LUNGS: Breath sounds equal, clear to auscultation bilaterally. No wheezes, and no crackles HEART: Regular rate and rhythm, normal S1 and S2, no murmurs, rubs or gallops ABDOMEN: Soft, nontender, normoactive bowel sounds. No guarding, no rebound. No masses EXTREMITIES: Normal range of motion, no edema. 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 Rivera (nephrlogy, covering for Dr. Raygoza) who recommends no further intervention at this time - only outpt f/u Pt is clinically stable for DC home, will f/u on Friday for rpt labs I discussed the physical exam findings, ancillary test results and final diagnoses with the patient. I answered all of the patient's questions. The patient was satisfied with the care received and felt comfortable with the discharge plan and treatment plan. The patient will call their primary care physician within 24 hours to arrange follow-up and will return to the Emergency Department with any new, persistent or worsening symptoms. Heart Score/ECG Review #1 12/04/18 20:47 Twelve-lead EKG was performed and reviewed by me. Normal sinus rhythm, rate 75. Normal axis and intervals. No ST elevations. T wave inversions in 1 aVL. No peaked T waves. When compared to previous EKG, no significant change.
--- NOTE | 2018-12-06 08:26 | EKG ---
Test Reason : Blood Pressure : / mmHG Vent. Rate : 075 BPM Atrial Rate : 075 BPM P-R Int : 192 ms QRS Dur : 088 ms QT Int : 368 ms P-R-T Axes : 073 054 092 degrees QTc Int : 410 ms NORMAL SINUS RHYTHM POSSIBLE LEFT ATRIAL ENLARGEMENT BORDERLINE ECG WHEN COMPARED WITH ECG OF 23-JUL-2017 02:13, NO SIGNIFICANT CHANGE WAS FOUND Confirmed by Luz Rosas ([id number]) on 12/06/2018 8:26:24 AM Referred By: Confirmed By:Luz Rosas
== END 2018-12-04 20:58 | disposition home or self-care (01) ==
LOC: JER 16:38
DX: E87.5 Hyperkalemia (principal); N39.0 Urinary tract infection, site not specified; I10 Essential (primary) hypertension; E11.9 Type 2 diabetes mellitus without complications; E78.00 Pure hypercholesterolemia, unspecified; R94.4 Abnormal results of kidney function studies; E66.9 Obesity, unspecified; Z68.35 Body mass index [BMI] 35.0-35.9, adult
CPT/HCPCS: 36415; 80053; 81003; 85025; 87086; 87186; 93005; 93010; 99283-25

== ENCOUNTER 2020-03-09 04:28 | Day surgery (SDC) | payer OTHER ==
[2020-03-08 12:54] VITALS: BMI 33.5
[2020-03-09] MEDS ORDERED: HEPARIN NA (PORCINE) 5,000 UNITS/ML 1ML VIAL ONE (07:22)
[2020-03-09] MEDS ORDERED: LIDOCAINE HCL/PF 2% SDV 5ML VIAL ONE (07:52)
[2020-03-09] MEDS ORDERED: PROPOFOL 20 ML ONE ×4 (07:53→09:36)
[2020-03-09] MEDS ORDERED: MIDAZOLAM HCL 2 MG/2 ML SINGLE DOSE VIAL ONE ×2 (07:53→08:22)
[2020-03-09] MEDS ORDERED: SUCCINYLCHOLINE CHLORIDE 200 MG/10 ML SYRINGE ONE (07:55)
[2020-03-09] MEDS ORDERED: ceFAZolin SODIUM 1 GM VIAL ONE (08:17)
[2020-03-09] MEDS ORDERED: ceFAZolin 2 GRAM PREMIX BAG IVPB ONE (08:20)
[2020-03-09] MEDS ORDERED: ONDANSETRON 4 MG/2 ML VIAL IVPUSH PRN (13:25)
[2020-03-09] MEDS ORDERED: oxyCODONE HCL 5 MG TABLET PO PRN (13:25)
[2020-03-09 14:30] VITALS: BP 144/83; PULSE 73; TEMP 97.6
== END 2020-03-09 14:39 | disposition home or self-care (01) ==
LOC: JASU-SURG 04:28
PROVIDERS: ATTEND Surgery Vascular Surgery
PROC: 031C0ZF Bypass Left Radial Artery to Lower Arm Vein, Open Approach (ICD-10-PCS; principal; 2020-03-09 08:00)
DX: I12.0 Hypertensive chronic kidney disease with stage 5 chronic kidney disease or end stage renal disease (principal); E11.22 Type 2 diabetes mellitus with diabetic chronic kidney disease; N18.6 End stage renal disease
CPT/HCPCS: 82962; 93005; 93010; 94760; J1644

== ENCOUNTER 2020-05-04 04:13 | Day surgery (SDC) | payer OTHER ==
[2020-05-01 16:24] VITALS: BMI 33.5
[2020-05-04 16:13] LABS: POTASSIUM 4.9 mmol/L (3.5-5.1)
[2020-05-04 16:14] LABS: BLOOD UREA NITROGEN 67.7 mg/dL (7-18); CALCIUM 8.4 mg/dL (8.5-10.1)
[2020-05-04] MEDS ORDERED: HEPARIN NA (PORCINE) 5,000 UNITS/ML 1ML VIAL ONE (17:07)
[2020-05-04] MEDS ORDERED: LIDOCAINE HCL 1%, 10 MG/ML (20ML VIAL) ONE (17:07)
[2020-05-04] MEDS ORDERED: MIDAZOLAM HCL 2 MG/2 ML SINGLE DOSE VIAL ONE (18:31)
[2020-05-04] MEDS ORDERED: PROPOFOL 20 ML ONE ×2 (18:31)
[2020-05-04] MEDS ORDERED: ceFAZolin SODIUM 1 GM VIAL IVPB ONE (18:37)
[2020-05-04] MEDS ORDERED: LIDOCAINE HCL 1%, 10 MG/ML (20ML VIAL) INF ONE ×2 (18:45)
[2020-05-04 20:03] VITALS: BP 139/89; PULSE 74; TEMP 97.8
== END 2020-05-04 20:23 | disposition home or self-care (01) ==
LOC: JASU-SURG 04:13
PROVIDERS: ATTEND Surgery Vascular Surgery
PROC: 037B3ZZ Dilation of Right Radial Artery, Percutaneous Approach (ICD-10-PCS; principal; 2020-05-04 16:30)
DX: T82.858A Stenosis of other vascular prosthetic devices, implants and grafts, initial encounter (principal); I12.0 Hypertensive chronic kidney disease with stage 5 chronic kidney disease or end stage renal disease; E13.22 Other specified diabetes mellitus with diabetic chronic kidney disease; N18.6 End stage renal disease
CPT/HCPCS: 36415; 76000-TC-FY; 80048; 82962; 94760; J1644

== ENCOUNTER 2020-07-05 07:59 | Inpatient (IN) | payer OTHER ==
[2020-07-05 09:07] LABS: EOS % 2.2 % (0-4.5); HEMATOCRIT 25.7 % (35.4-49); HEMOGLOBIN 8.7 GM/dL (11.7-16.9); LYMPH % 27.2 % (8-40); MCH 31.7 pg (25.7-33.7); MEAN CELL VOLUME 93.3 fl (80-96); MEAN PLT VOLUME 9.3 fl (7.5-11.1); MONO % 7.4 % (3.8-10.2); NEUT % 62.2 % (42.8-82.8); PLATELET COUNT 201 K/MM3 (134-434); RBC 2.76 M/mm3 (4.00-5.60); RDW 13.9 % (11.9-15.9); WHITE BLOOD COUNT 5.1 K/mm3 (4.0-10.0)
[2020-07-05 09:48] LABS: BLOOD UREA NITROGEN 81.7 mg/dL (7-18); CALCIUM 8.6 mg/dL (8.5-10.1)
[2020-07-05 09:49] LABS: ALBUMIN 3.4 g/dl (3.4-5.0); MAGNESIUM 2.3 mg/dL (1.8-2.4)
[2020-07-05 09:52] LABS: BILIRUBIN,DIRECT 0.1 mg/dL (0.0-0.2); TOT PROT 6.9 g/dl (6.4-8.2)
[2020-07-05 09:53] LABS: BILIRUBIN,TOTAL 0.3 mg/dL (0.2-1)
[2020-07-05 10:29] LABS: CREATININE 7.4 mg/dL (0.55-1.3)
[2020-07-05] MEDS ORDERED: LIDOCAINE 2.5%/PRILOCAINE 2.5% 30 GRAM TUBE TP SCH (12:00)
[2020-07-05] MEDS ORDERED: SODIUM CHLORIDE 250 ML IV PRN ×2 (15:12→16:58)
[2020-07-05] MEDS ORDERED: EPOETIN ALFA-EPBX 10,000 UNIT/ML VIAL IVPUSH ONE (15:30)
[2020-07-05 17:13] VITALS: BMI 32.0
[2020-07-06 07:20] LABS: BASO % 1.2 % (0-2.0); EOS % 1.7 % (0-4.5); HEMATOCRIT 27.7 % (35.4-49); HEMOGLOBIN 9.5 GM/dL (11.7-16.9); LYMPH % 30.2 % (8-40); MCH 31.6 pg (25.7-33.7); MCHC 34.3 g/dl (32.0-35.9); MEAN CELL VOLUME 92.1 fl (80-96); MEAN PLT VOLUME 9.3 fl (7.5-11.1); MONO % 7.8 % (3.8-10.2); NEUT % 59.1 % (42.8-82.8); PLATELET COUNT 218 K/MM3 (134-434); RBC 3.01 M/mm3 (4.00-5.60); RDW 13.7 % (11.9-15.9); RETICULOCYTES 1.11 % (0.5-1.5)
[2020-07-06 07:56] LABS: ALBUMIN 3.4 g/dl (3.4-5.0); CALCIUM 8.4 mg/dL (8.5-10.1)
[2020-07-06 07:57] LABS: MAGNESIUM 2.2 mg/dL (1.8-2.4)
[2020-07-06 07:59] LABS: PHOSPHOROUS 4.4 mg/dL (2.5-4.9)
[2020-07-06 08:00] LABS: BILIRUBIN,TOTAL 0.4 mg/dL (0.2-1); CREATININE 5.8 mg/dL (0.55-1.3)
[2020-07-06 08:02] LABS: TOT PROT 7.2 g/dl (6.4-8.2)
[2020-07-06 08:50] LABS: BLOOD UREA NITROGEN 55.3 mg/dL (7-18)
[2020-07-06] MEDS: FUROSEMIDE 40 MG TABLET (FP) PO SCH (12:26)
[2020-07-06] MEDS: SODIUM ZIRCONIUM CYCLOSILICATE (LOKELMA) 10 GM PACKET PO SCH (12:26)
[2020-07-06] MEDS: LABETALOL HCL 200 MG TABLET (FP) PO SCH (14:03)
[2020-07-06 16:13] LABS: HEP B CORE AB, TOT Negative (Negative)
[2020-07-07] MEDS: LABETALOL HCL 200 MG TABLET (FP) PO SCH (09:51)
[2020-07-07] MEDS: SODIUM ZIRCONIUM CYCLOSILICATE (LOKELMA) 10 GM PACKET PO SCH (09:51)
[2020-07-07] MEDS: FUROSEMIDE 40 MG TABLET (FP) PO SCH (09:51)
[2020-07-07 10:43] VITALS: TEMP 98.8
[2020-07-07] MEDS ORDERED: SODIUM CHLORIDE 250 ML IV PRN (10:51)
[2020-07-07] MEDS ORDERED: EPOETIN ALFA-EPBX 10,000 UNIT/ML VIAL IVPUSH ONE (11:15)
[2020-07-07 11:27] LABS: CALCIUM 8.4 mg/dL (8.5-10.1)
[2020-07-07 11:28] LABS: BLOOD UREA NITROGEN 35.5 mg/dL (7-18)
[2020-07-07 11:31] LABS: CREATININE 4.9 mg/dL (0.55-1.3)
[2020-07-07 12:09] VITALS: PULSE 71
[2020-07-07 13:10] VITALS: BP 131/82
== END 2020-07-07 15:36 | disposition home or self-care (01) | DRG 682 ==
LOC: JER 07:59 → JERBED 10:25 → J7W 15:06
PROVIDERS: ADMIT Internal Medicine; ATTEND Internal Medicine
PROC: 5A1D70Z Performance of Urinary Filtration, Intermittent, Less than 6 Hours Per Day (ICD-10-PCS; principal; 2020-07-05)
PROC: 5A1D70Z Performance of Urinary Filtration, Intermittent, Less than 6 Hours Per Day (ICD-10-PCS; 2020-07-06)
PROC: 5A1D70Z Performance of Urinary Filtration, Intermittent, Less than 6 Hours Per Day (ICD-10-PCS; 2020-07-06)
DX: I12.0 Hypertensive chronic kidney disease with stage 5 chronic kidney disease or end stage renal disease (principal); N18.6 End stage renal disease; Z49.01 Encounter for fitting and adjustment of extracorporeal dialysis catheter; E11.22 Type 2 diabetes mellitus with diabetic chronic kidney disease; D63.1 Anemia in chronic kidney disease; E11.51 Type 2 diabetes mellitus with diabetic peripheral angiopathy without gangrene; E78.5 Hyperlipidemia, unspecified; E87.5 Hyperkalemia; L81.9 Disorder of pigmentation, unspecified; E87.70 Fluid overload, unspecified; Z89.422 Acquired absence of other left toe(s)
CPT/HCPCS: 36415; 71045-TC-FY; 80048; 80053; 80074; 80076; 82607; 82728; 82746; 82962; 83540; 83550; 83735; 84100; 85025; 85045; 86704; 86706; 86707; 86708; 86709; 86803; 87077; 87081; 87340; 93005; 93010; 99285-25; C9803; Q5106; U0003; U0005

== ENCOUNTER 2020-09-02 12:49 | Inpatient (IN) | payer OTHER ==
[2020-09-02 13:58] LABS: BASO % 0.8 % (0-2.0); EOS % 1.2 % (0-4.5); HEMATOCRIT 36.4 % (35.4-49); HEMOGLOBIN 11.7 GM/dL (11.7-16.9); LYMPH % 22.1 % (8-40); MCH 31.5 pg (25.7-33.7); MCHC 32.2 g/dl (32.0-35.9); MEAN PLT VOLUME 8.7 fl (7.5-11.1); MONO % 5.6 % (3.8-10.2); NEUT % 70.3 % (42.8-82.8); PLATELET COUNT 248 10^3/uL (134-434); RBC 3.72 M/mm3 (4.00-5.60); RDW 14.1 % (11.9-15.9); WHITE BLOOD COUNT 7.3 K/mm3 (4.0-10.0)
[2020-09-02 14:07] LABS: INR 0.95 (0.83-1.09); PROTHROMBIN TIME (PATIENT) 11.5 SEC (9.7-13.0)
[2020-09-02 14:10] LABS: ACTIVATED PTT 35.1 SECONDS (25.2-36.5)
[2020-09-02 14:17] LABS: BLOOD UREA NITROGEN 36.1 mg/dL (7-18); CALCIUM 9.5 mg/dL (8.5-10.1)
[2020-09-02 14:18] LABS: ALBUMIN 3.6 g/dl (3.4-5.0); MAGNESIUM 2.3 mg/dL (1.8-2.4)
[2020-09-02 14:20] LABS: CREATININE 6.8 mg/dL (0.55-1.3)
[2020-09-02 14:21] LABS: PHOSPHOROUS 4.3 mg/dL (2.5-4.9)
[2020-09-02 14:22] LABS: BILIRUBIN,TOTAL 0.4 mg/dL (0.2-1); TOT PROT 7.5 g/dl (6.4-8.2)
[2020-09-02] MEDS ORDERED: SODIUM ZIRCONIUM CYCLOSILICATE (LOKELMA) 5 GM PACKET ONE (15:53)
[2020-09-02] MEDS: SODIUM ZIRCONIUM CYCLOSILICATE (LOKELMA) 5 GM PACKET PO SCH (15:57)
[2020-09-02] MEDS ORDERED: FUROSEMIDE 80 MG PO SCH (18:45)
[2020-09-02] MEDS: HEPARIN NA (PORCINE) 5,000 UNITS/ML 1ML VIAL SQ SCH (21:18)
[2020-09-02] MEDS: LABETALOL HCL 200 MG TABLET (FP) PO SCH (21:18)
[2020-09-02] MEDS: INSULIN SLIDING SCALE (NOVOLOG) 1 VIAL SQ SCH (21:25)
[2020-09-02] MEDS ORDERED: PATIENT'S OWN MEDICATION (NON-FORMULARY) (Dorzolamide Hcl/Timolol Maleat [Cosopt Eye Drops OU SCH (22:00)
[2020-09-02] MEDS ORDERED: PATIENT'S OWN MEDICATION (NON-FORMULARY) (Latanoprost/Pf [Latanoprost 0.005% Eye Drop] 7.5 OU SCH (22:00)
[2020-09-02 22:09] VITALS: BMI 31.5
[2020-09-02] MEDS: TIMOLOL 0.5% OPHTHALMIC SOL 5 ML BOTTLE OU SCH (22:50)
[2020-09-02] MEDS: LATANOPROST 0.005% OPHTH SOLN 2.5ML BOTTLE OU SCH (22:54)
[2020-09-02] MEDS: DORZOLAMIDE 2% HCL OPHTHALMIC SOLUTION 10 ML BOTTLE OU SCH (22:54)
[2020-09-03] MEDS: HEPARIN NA (PORCINE) 5,000 UNITS/ML 1ML VIAL SQ SCH ×2 (06:15→15:14)
[2020-09-03] MEDS: INSULIN SLIDING SCALE (NOVOLOG) 1 VIAL SQ SCH ×4 (06:19→22:11)
[2020-09-03 06:23] LABS: BASO % 1.2 % (0-2.0); EOS % 2.6 % (0-4.5); HEMATOCRIT 35.4 % (35.4-49); HEMOGLOBIN 11.5 GM/dL (11.7-16.9); LYMPH % 29.8 % (8-40); MCH 31.8 pg (25.7-33.7); MCHC 32.5 g/dl (32.0-35.9); MEAN CELL VOLUME 97.8 fl (80-96); MEAN PLT VOLUME 8.9 fl (7.5-11.1); MONO % 7.2 % (3.8-10.2); NEUT % 59.2 % (42.8-82.8); PLATELET COUNT 231 10^3/uL (134-434); RBC 3.62 M/mm3 (4.00-5.60); RDW 14.2 % (11.9-15.9); WHITE BLOOD COUNT 5.2 K/mm3 (4.0-10.0)
[2020-09-03 06:33] LABS: INR 0.97 (0.83-1.09); PROTHROMBIN TIME (PATIENT) 11.7 SEC (9.7-13.0)
[2020-09-03 06:38] LABS: CHLORIDE 108 mmol/L (98-107); SODIUM 139 mmol/L (136-145)
[2020-09-03 06:40] LABS: CALCIUM 8.9 mg/dL (8.5-10.1)
[2020-09-03 06:41] LABS: ANION GAP 6 MMOL/L (8-16); BLOOD UREA NITROGEN 41.9 mg/dL (7-18); CO2 26 mmol/L (21-32); GLUCOSE,RANDOM 89 mg/dL (74-106); MAGNESIUM 2.2 mg/dL (1.8-2.4)
[2020-09-03 06:47] LABS: CREATININE 7.5 mg/dL (0.55-1.3)
[2020-09-03] MEDS ORDERED: PT OWN MED DRAWER 7, Y5N ONE (09:06)
[2020-09-03] MEDS: LABETALOL HCL 200 MG TABLET (FP) PO SCH ×2 (09:56→22:10)
[2020-09-03] MEDS: FUROSEMIDE 40 MG TABLET (FP) PO SCH (09:57)
[2020-09-03] MEDS: SODIUM ZIRCONIUM CYCLOSILICATE (LOKELMA) 10 GM PACKET PO SCH (12:21)
[2020-09-03] MEDS: TIMOLOL 0.5% OPHTHALMIC SOL 5 ML BOTTLE OU SCH ×2 (12:21→22:11)
[2020-09-03] MEDS: DORZOLAMIDE 2% HCL OPHTHALMIC SOLUTION 10 ML BOTTLE OU SCH ×2 (12:22→22:11)
[2020-09-03] MEDS: SODIUM ZIRCONIUM CYCLOSILICATE (LOKELMA) 5 GM PACKET PO SCH (12:22)
[2020-09-03] MEDS ORDERED: ACETAMINOPHEN 325 MG TABLET (FP) PO PRN (14:22)
[2020-09-03] MEDS ORDERED: ONDANSETRON 4 MG TABLET PO PRN (14:22)
[2020-09-03] MEDS ORDERED: ONDANSETRON 4 MG/2 ML VIAL IVPUSH PRN (14:27)
[2020-09-03] MEDS ORDERED: MELATONIN 5 MG TABLETS PO PRN (16:55)
[2020-09-03] MEDS ORDERED: HEPARIN NA (PORCINE) 5,000 UNITS/ML 1ML VIAL SQ ONE (22:00)
[2020-09-03] MEDS ORDERED: ATORVASTATIN CA 10 MG TABLET (FP) PO SCH (22:00)
[2020-09-03] MEDS: LATANOPROST 0.005% OPHTH SOLN 2.5ML BOTTLE OU SCH (22:11)
[2020-09-04] MEDS: INSULIN SLIDING SCALE (NOVOLOG) 1 VIAL SQ SCH ×2 (06:15→11:32)
[2020-09-04 07:53] LABS: CHLORIDE 108 mmol/L (98-107); SODIUM 140 mmol/L (136-145)
[2020-09-04 07:54] LABS: CALCIUM 8.6 mg/dL (8.5-10.1)
[2020-09-04 07:55] LABS: ANION GAP 9 MMOL/L (8-16); BLOOD UREA NITROGEN 53.2 mg/dL (7-18); CO2 23 mmol/L (21-32); GLUCOSE,RANDOM 94 mg/dL (74-106); MAGNESIUM 2.6 mg/dL (1.8-2.4)
[2020-09-04 07:58] LABS: PHOSPHOROUS 5.6 mg/dL (2.5-4.9)
[2020-09-04 08:02] LABS: BASO % 1.1 % (0-2.0); EOS % 2.3 % (0-4.5); MCH 32.2 pg (25.7-33.7); MCHC 33.4 g/dl (32.0-35.9); MEAN CELL VOLUME 96.5 fl (80-96); MEAN PLT VOLUME 9.5 fl (7.5-11.1); MONO % 5.6 % (3.8-10.2); PLATELET COUNT 176 10^3/uL (134-434); RBC 3.42 M/mm3 (4.00-5.60); RDW 14.1 % (11.9-15.9); WHITE BLOOD COUNT 4.7 K/mm3 (4.0-10.0)
[2020-09-04 08:06] LABS: CREATININE 8.7 mg/dL (0.55-1.3)
[2020-09-04] MEDS: LABETALOL HCL 200 MG TABLET (FP) PO SCH (10:17)
[2020-09-04] MEDS: FUROSEMIDE 40 MG TABLET (FP) PO SCH (10:18)
[2020-09-04] MEDS: DORZOLAMIDE 2% HCL OPHTHALMIC SOLUTION 10 ML BOTTLE OU SCH (10:20)
[2020-09-04] MEDS: TIMOLOL 0.5% OPHTHALMIC SOL 5 ML BOTTLE OU SCH (10:21)
[2020-09-04] MEDS ORDERED: PT OWN MED DRAWER 7, Y5N ONE (10:23)
[2020-09-04] MEDS: SODIUM ZIRCONIUM CYCLOSILICATE (LOKELMA) 10 GM PACKET PO SCH (10:30)
[2020-09-04] MEDS ORDERED: LIDOCAINE HCL 1%, 10 MG/ML (20ML VIAL) ONE (11:07)
[2020-09-04] MEDS ORDERED: HEPARIN NA (PORCINE) 5,000 UNITS/ML 1ML VIAL ONE ×2 (11:08→11:47)
[2020-09-04] MEDS ORDERED: SODIUM CHLORIDE 250 ML IV PRN ×2 (12:01→14:16)
[2020-09-04] MEDS ORDERED: MIDAZOLAM HCL 2 MG/2 ML SINGLE DOSE VIAL ONE ×2 (12:29)
[2020-09-04] MEDS ORDERED: ceFAZolin SODIUM 1 GM VIAL IVPB ONE (13:09)
[2020-09-04] MEDS ORDERED: LABETALOL HCL 5 MG/1 ML (100MG/20 ML VIAL) ONE (13:17)
[2020-09-04] MEDS ORDERED: PROPOFOL 20 ML ONE (13:20)
[2020-09-04] MEDS ORDERED: ceFAZolin SODIUM 1 GM VIAL ONE (13:21)
[2020-09-04] MEDS ORDERED: DEXAMETHASONE SOD PHOSPHATE 4 MG/1 ML VIAL ONE (13:21)
[2020-09-04] MEDS ORDERED: LIDOCAINE HCL 1%, 10 MG/ML (20ML VIAL) INF ONE (13:45)
[2020-09-04] MEDS: LABETALOL HCL 5 MG/1 ML (100MG/20 ML VIAL) IVPUSH PRN ×2 (14:05→14:45)
[2020-09-04] MEDS ORDERED: ONDANSETRON 4 MG/2 ML VIAL IVPUSH PRN ×2 (14:07→14:16)
[2020-09-04] MEDS ORDERED: SODIUM CHLORIDE 1,000 ML IV SCH (14:15)
[2020-09-04] MEDS ORDERED: ACETAMINOPHEN 325 MG TABLET (FP) PO PRN (14:16)
[2020-09-04] MEDS ORDERED: MELATONIN 5 MG TABLETS PO PRN (14:16)
[2020-09-04] MEDS ORDERED: ONDANSETRON 4 MG/2 ML VIAL ONE (15:22)
[2020-09-04] MEDS ORDERED: INSULIN SLIDING SCALE (NOVOLOG) 1 VIAL SQ SCH (16:30)
[2020-09-04 18:24] VITALS: BP 108/61; PULSE 66; TEMP 98.2
[2020-09-04] MEDS ORDERED: DORZOLAMIDE 2% HCL OPHTHALMIC SOLUTION 10 ML BOTTLE OU SCH (22:00)
[2020-09-04] MEDS ORDERED: LABETALOL HCL 100 MG TABLET (FP) PO SCH (22:00)
[2020-09-04] MEDS ORDERED: ATORVASTATIN CA 10 MG TABLET (FP) PO SCH (22:00)
[2020-09-04] MEDS ORDERED: TIMOLOL 0.5% OPHTHALMIC SOL 5 ML BOTTLE OU SCH (22:00)
[2020-09-04] MEDS ORDERED: LATANOPROST 0.005% OPHTH SOLN 2.5ML BOTTLE OU SCH (22:00)
[2020-09-05] MEDS ORDERED: FUROSEMIDE 40 MG TABLET (FP) PO SCH (10:00)
== END 2020-09-04 19:17 | disposition home or self-care (01) | DRG 252 ==
LOC: JER 12:49 → JERBED 15:32 → J4S 19:06
PROVIDERS: ADMIT Internal Medicine; ATTEND Student in an Organized Health Care Education/Training Program
PROC: 3E033GC Introduction of Other Therapeutic Substance into Peripheral Vein, Percutaneous Approach (ICD-10-PCS; 2020-09-04)
PROC: 057Y3ZZ Dilation of Upper Vein, Percutaneous Approach (ICD-10-PCS; 2020-09-04)
PROC: B50MYZZ Plain Radiography of Right Upper Extremity Veins using Other Contrast (ICD-10-PCS; 2020-09-04)
PROC: 5A1D70Z Performance of Urinary Filtration, Intermittent, Less than 6 Hours Per Day (ICD-10-PCS; 2020-09-04)
PROC: 057D3ZZ Dilation of Right Cephalic Vein, Percutaneous Approach (ICD-10-PCS; principal; 2020-09-04 12:00)
DX: T82.858A Stenosis of other vascular prosthetic devices, implants and grafts, initial encounter (principal); N18.6 End stage renal disease; I12.0 Hypertensive chronic kidney disease with stage 5 chronic kidney disease or end stage renal disease; Y83.8 Other surgical procedures as the cause of abnormal reaction of the patient, or of later complication, without mention of misadventure at the time of the procedure; E11.22 Type 2 diabetes mellitus with diabetic chronic kidney disease; E78.5 Hyperlipidemia, unspecified; E87.5 Hyperkalemia; E11.51 Type 2 diabetes mellitus with diabetic peripheral angiopathy without gangrene; D64.9 Anemia, unspecified; Z89.422 Acquired absence of other left toe(s); Z99.2 Dependence on renal dialysis
CPT/HCPCS: 36415; 76000-TC-FY; 80048; 80053; 82962; 83735; 84100; 85025; 85610; 85730; 86803; 86850; 86900; 86901; 87340; 93005; 93010; 93971; 94760; 99285-25; C9803; J1644; U0003; U0005

== ENCOUNTER 2020-09-07 11:54 | Observation (INO) | payer OTHER ==
[2020-09-07 13:36] LABS: BASO % 1.3 % (0-2.0); EOS % 2.7 % (0-4.5); HEMATOCRIT 35.1 % (35.4-49); HEMOGLOBIN 11.3 GM/dL (11.7-16.9); LYMPH % 26.1 % (8-40); MCH 31.6 pg (25.7-33.7); MCHC 32.2 g/dl (32.0-35.9); MEAN CELL VOLUME 98.1 fl (80-96); MEAN PLT VOLUME 8.8 fl (7.5-11.1); MONO % 6.2 % (3.8-10.2); NEUT % 63.7 % (42.8-82.8); PLATELET COUNT 230 10^3/uL (134-434); RBC 3.58 M/mm3 (4.00-5.60); RDW 13.9 % (11.9-15.9); WHITE BLOOD COUNT 5.2 K/mm3 (4.0-10.0)
[2020-09-07 13:37] LABS: INR 0.91 (0.83-1.09); PROTHROMBIN TIME (PATIENT) 11.2 SEC (9.7-13.0)
[2020-09-07 13:40] LABS: ACTIVATED PTT 36.1 SECONDS (25.2-36.5)
[2020-09-07 13:57] LABS: CHLORIDE 109 mmol/L (98-107); SODIUM 143 mmol/L (136-145)
[2020-09-07 13:59] LABS: CALCIUM 9.8 mg/dL (8.5-10.1)
[2020-09-07 14:00] LABS: ALBUMIN 3.6 g/dl (3.4-5.0); ANION GAP 7 MMOL/L (8-16); BLOOD UREA NITROGEN 57.2 mg/dL (7-18); CO2 27 mmol/L (21-32); GLUCOSE,RANDOM 100 mg/dL (74-106)
[2020-09-07 14:03] LABS: SGOT/AST 25 U/L (15-37); SGPT/ALT 11 U/L (13-61)
[2020-09-07 14:05] LABS: TOT PROT 7.5 g/dl (6.4-8.2)
[2020-09-07 14:06] LABS: ALK PHOS 83 U/L (45-117)
[2020-09-07 14:11] LABS: BILIRUBIN,TOTAL 0.3 mg/dL (0.2-1)
[2020-09-07 14:12] LABS: CREATININE 9.3 mg/dL (0.55-1.3)
[2020-09-07] MEDS ORDERED: HEPARIN NA (PORCINE) 5,000 UNITS/ML 1ML VIAL IVPUSH ONE (17:42)
[2020-09-07] MEDS ORDERED: SODIUM CHLORIDE 250 ML IV PRN (17:42)
[2020-09-07 23:06] VITALS: BMI 31.1
[2020-09-08 09:37] LABS: BASO % 1.9 % (0-2.0); EOS % 2.9 % (0-4.5); HEMATOCRIT 36.4 % (35.4-49); HEMOGLOBIN 11.7 GM/dL (11.7-16.9); LYMPH % 26.9 % (8-40); MCH 31.5 pg (25.7-33.7); MCHC 32.1 g/dl (32.0-35.9); MEAN PLT VOLUME 9.1 fl (7.5-11.1); NEUT % 62.3 % (42.8-82.8); PLATELET COUNT 223 10^3/uL (134-434); RBC 3.71 M/mm3 (4.00-5.60); RDW 13.5 % (11.9-15.9); WHITE BLOOD COUNT 4.6 K/mm3 (4.0-10.0)
[2020-09-08 09:47] LABS: CHLORIDE 107 mmol/L (98-107); SODIUM 143 mmol/L (136-145)
[2020-09-08] MEDS: FUROSEMIDE 40 MG TABLET (FP) PO SCH (09:47)
[2020-09-08] MEDS: amLODIPine BESYLATE 10 MG TABLET (FP) PO SCH (09:47)
[2020-09-08] MEDS: LABETALOL HCL 100 MG TABLET (FP) PO SCH ×2 (09:47→21:10)
[2020-09-08 09:50] LABS: ALBUMIN 3.6 g/dl (3.4-5.0); BLOOD UREA NITROGEN 43.2 mg/dL (7-18)
[2020-09-08 09:51] LABS: ANION GAP 9 MMOL/L (8-16); CALCIUM 9.4 mg/dL (8.5-10.1); CO2 26 mmol/L (21-32); GLUCOSE,RANDOM 88 mg/dL (74-106)
[2020-09-08 09:52] LABS: SGPT/ALT 10 U/L (13-61)
[2020-09-08 09:53] LABS: SGOT/AST 24 U/L (15-37)
[2020-09-08 09:54] LABS: BILIRUBIN,TOTAL 0.4 mg/dL (0.2-1); TOT PROT 7.4 g/dl (6.4-8.2)
[2020-09-08 09:55] LABS: ALK PHOS 84 U/L (45-117)
[2020-09-08 09:56] LABS: CREATININE 7.7 mg/dL (0.55-1.3)
[2020-09-08] MEDS: INSULIN SLIDING SCALE (NOVOLOG) 1 VIAL SQ SCH ×3 (11:29→21:09)
[2020-09-08] MEDS ORDERED: SODIUM CHLORIDE 250 ML IV PRN (12:18)
[2020-09-08] MEDS: HEPARIN NA (PORCINE) 5,000 UNITS/ML 1ML VIAL SQ SCH ×2 (13:29→21:10)
[2020-09-08] MEDS ORDERED: ATORVASTATIN CA 10 MG TABLET (FP) PO SCH (22:00)
[2020-09-09] MEDS: INSULIN SLIDING SCALE (NOVOLOG) 1 VIAL SQ SCH ×2 (06:36→13:30)
[2020-09-09] MEDS: HEPARIN NA (PORCINE) 5,000 UNITS/ML 1ML VIAL SQ SCH ×2 (06:36→14:30)
[2020-09-09] MEDS ORDERED: HEPARIN NA (PORCINE) 5,000 UNITS/ML 1ML VIAL IVPUSH ONE (08:00)
[2020-09-09] MEDS: HEPARIN NA (PORCINE) 5,000 UNITS/ML 1ML VIAL IVPUSH SCH ×3 (09:25→11:25)
[2020-09-09 09:38] LABS: HEMATOCRIT 34.5 % (35.4-49); HEMOGLOBIN 11.3 GM/dL (11.7-16.9); MCH 31.8 pg (25.7-33.7); MCHC 32.7 g/dl (32.0-35.9); MEAN CELL VOLUME 97.2 fl (80-96); MEAN PLT VOLUME 9.3 fl (7.5-11.1); PLATELET COUNT 216 10^3/uL (134-434); RBC 3.55 M/mm3 (4.00-5.60); RDW 13.8 % (11.9-15.9); WHITE BLOOD COUNT 4.5 K/mm3 (4.0-10.0)
[2020-09-09 09:57] LABS: CHLORIDE 104 mmol/L (98-107); SODIUM 138 mmol/L (136-145)
[2020-09-09 09:58] LABS: CALCIUM 8.9 mg/dL (8.5-10.1)
[2020-09-09 09:59] LABS: ANION GAP 8 MMOL/L (8-16); BLOOD UREA NITROGEN 61.2 mg/dL (7-18); CO2 27 mmol/L (21-32); GLUCOSE,RANDOM 149 mg/dL (74-106)
[2020-09-09] MEDS ORDERED: LISINOPRIL 5 MG TABLET PO SCH (10:00)
[2020-09-09 10:02] LABS: CREATININE 8.6 mg/dL (0.55-1.3); PHOSPHOROUS 4.9 mg/dL (2.5-4.9)
[2020-09-09] MEDS: LABETALOL HCL 100 MG TABLET (FP) PO SCH (13:16)
[2020-09-09] MEDS: amLODIPine BESYLATE 10 MG TABLET (FP) PO SCH (13:16)
[2020-09-09] MEDS: FUROSEMIDE 40 MG TABLET (FP) PO SCH (13:16)
[2020-09-09 14:15] VITALS: BP 114/70; PULSE 76; TEMP 98
== END 2020-09-09 14:45 | disposition home or self-care (01) ==
LOC: JER 11:54 → UNDOADMOB 14:26 → INTOOBSV 14:26 → JERBED 14:26 → J5S 20:07
PROVIDERS: ATTEND Nurse Practitioner Acute Care
PROC: 3E033GC Introduction of Other Therapeutic Substance into Peripheral Vein, Percutaneous Approach (ICD-10-PCS; principal; 2020-09-08)
DX: T82.9XXD Unspecified complication of cardiac and vascular prosthetic device, implant and graft, subsequent encounter (principal); E66.9 Obesity, unspecified; Z68.31 Body mass index [BMI] 31.0-31.9, adult; E78.5 Hyperlipidemia, unspecified; I11.0 Hypertensive heart disease with heart failure; E11.22 Type 2 diabetes mellitus with diabetic chronic kidney disease; I12.0 Hypertensive chronic kidney disease with stage 5 chronic kidney disease or end stage renal disease; N18.6 End stage renal disease; Z99.2 Dependence on renal dialysis; Y93.89 Activity, other specified; Y92.89 Other specified places as the place of occurrence of the external cause
CPT/HCPCS: 36415; 80048; 80053; 82962; 84100; 85025; 85027; 85610; 85730; 93005; 93010; 96374; 96376; 99285-25; C9803; G0378; J1644; U0003; U0005

== ENCOUNTER 2020-09-21 12:21 | Observation (INO) | payer OTHER ==
[2020-09-21 16:50] LABS: BASO % 1.1 % (0-2.0); EOS % 1.5 % (0-4.5); HEMATOCRIT 33.9 % (35.4-49); HEMOGLOBIN 11.3 GM/dL (11.7-16.9); INR 0.98 (0.83-1.09); LYMPH % 24.3 % (8-40); MCH 32.1 pg (25.7-33.7); MCHC 33.2 g/dl (32.0-35.9); MEAN CELL VOLUME 96.6 fl (80-96); MEAN PLT VOLUME 8.5 fl (7.5-11.1); MONO % 5.7 % (3.8-10.2); NEUT % 67.4 % (42.8-82.8); PLATELET COUNT 241 10^3/uL (134-434); PROTHROMBIN TIME (PATIENT) 11.9 SEC (9.7-13.0); RBC 3.51 M/mm3 (4.00-5.60); RDW 13.9 % (11.9-15.9); WHITE BLOOD COUNT 6.1 K/mm3 (4.0-10.0)
[2020-09-21 17:02] LABS: CHLORIDE 107 mmol/L (98-107); SODIUM 143 mmol/L (136-145)
[2020-09-21 17:04] LABS: CALCIUM 9.6 mg/dL (8.5-10.1)
[2020-09-21 17:05] LABS: ALBUMIN 3.7 g/dl (3.4-5.0); ANION GAP 10 MMOL/L (8-16); CO2 25 mmol/L (21-32); GLUCOSE,RANDOM 97 mg/dL (74-106)
[2020-09-21 17:08] LABS: SGOT/AST 26 U/L (15-37); SGPT/ALT 22 U/L (13-61)
[2020-09-21 17:09] LABS: BILIRUBIN,TOTAL 0.2 mg/dL (0.2-1)
[2020-09-21 17:10] LABS: TOT PROT 7.8 g/dl (6.4-8.2)
[2020-09-21 17:11] LABS: ALK PHOS 89 U/L (45-117)
[2020-09-21] MEDS ORDERED: ONDANSETRON 4 MG/2 ML VIAL IVPUSH PRN ×2 (17:12→19:05)
[2020-09-21] MEDS ORDERED: oxyCODONE HCL 5 MG TABLET PO PRN ×2 (17:12→19:05)
[2020-09-21 17:13] LABS: CREATININE 8.1 mg/dL (0.55-1.3)
[2020-09-21] MEDS ORDERED: INSULIN REGULAR HUMAN 100 UNITS/ML *VIAL IVPUSH ONE (17:14)
[2020-09-21] MEDS ORDERED: DEXTROSE 50%-WATER - 25 GM/50 ML VIAL IVPUSH ONE (17:14)
[2020-09-21] MEDS ORDERED: SODIUM ZIRCONIUM CYCLOSILICATE (LOKELMA) 5 GM PACKET PO SCH (17:15)
[2020-09-21] MEDS ORDERED: SODIUM CHLORIDE 1,000 ML IV SCH ×2 (17:15→19:05)
[2020-09-21] MEDS ORDERED: SODIUM ZIRCONIUM CYCLOSILICATE (LOKELMA) 5 GM PACKET ONE ×2 (17:33→19:05)
[2020-09-21] MEDS ORDERED: DEXTROSE 50%-WATER 25 GM/50 ML DISP.SYRIN ONE ×2 (17:33→19:05)
[2020-09-21] MEDS ORDERED: LIDOCAINE HCL 1%, 10 MG/ML (20ML VIAL) ONE ×2 (17:41→19:05)
[2020-09-21] MEDS ORDERED: PROPOFOL 20 ML ONE ×6 (17:58→19:05)
[2020-09-21] MEDS ORDERED: SUCCINYLCHOLINE CHLORIDE 200 MG/10 ML SYRINGE ONE ×2 (17:58→19:05)
[2020-09-21] MEDS ORDERED: ROCURONIUM BROMIDE 50 MG/5 ML SYRINGE ONE ×2 (17:58→19:05)
[2020-09-21] MEDS ORDERED: MIDAZOLAM HCL 2 MG/2 ML SINGLE DOSE VIAL ONE ×2 (18:12→19:05)
[2020-09-21] MEDS ORDERED: ceFAZolin SODIUM 1 GM VIAL IVPB ONE (18:20)
[2020-09-21] MEDS ORDERED: LIDOCAINE HCL 1%, 10 MG/ML (20ML VIAL) NR ONE ×2 (18:25)
[2020-09-21] MEDS ORDERED: SODIUM CHLORIDE 250 ML IV PRN (19:37)
[2020-09-21] MEDS ORDERED: ATORVASTATIN CA 10 MG TABLET (FP) PO SCH (22:00)
[2020-09-21] MEDS: LABETALOL HCL 200 MG TABLET (FP) PO SCH (22:16)
[2020-09-21 23:05] VITALS: BMI 30.7
[2020-09-22] MEDS: INSULIN SLIDING SCALE (NOVOLOG) 1 VIAL SQ SCH ×2 (06:20→11:42)
[2020-09-22 09:26] LABS: BASO % 0.8 % (0-2.0); EOS % 0.7 % (0-4.5); HEMATOCRIT 32.4 % (35.4-49); HEMOGLOBIN 10.9 GM/dL (11.7-16.9); LYMPH % 14.1 % (8-40); MCH 32.8 pg (25.7-33.7); MCHC 33.6 g/dl (32.0-35.9); MEAN CELL VOLUME 97.6 fl (80-96); MEAN PLT VOLUME 8.7 fl (7.5-11.1); NEUT % 79.4 % (42.8-82.8); PLATELET COUNT 225 10^3/uL (134-434); RBC 3.32 M/mm3 (4.00-5.60); RDW 13.9 % (11.9-15.9); WHITE BLOOD COUNT 6.8 K/mm3 (4.0-10.0)
[2020-09-22 09:38] LABS: CHLORIDE 106 mmol/L (98-107); SODIUM 137 mmol/L (136-145)
[2020-09-22 09:40] LABS: CALCIUM 8.7 mg/dL (8.5-10.1)
[2020-09-22 09:41] LABS: ANION GAP 8 MMOL/L (8-16); BLOOD UREA NITROGEN 56.3 mg/dL (7-18); CO2 23 mmol/L (21-32); GLUCOSE,RANDOM 145 mg/dL (74-106)
[2020-09-22 09:49] LABS: CREATININE 8.1 mg/dL (0.55-1.3)
[2020-09-22] MEDS ORDERED: amLODIPine BESYLATE 10 MG TABLET (FP) PO SCH (10:00)
[2020-09-22] MEDS ORDERED: SODIUM ZIRCONIUM CYCLOSILICATE (LOKELMA) 5 GM PACKET PO SCH (10:00)
[2020-09-22 13:29] VITALS: TEMP 98
[2020-09-22] MEDS: LABETALOL HCL 200 MG TABLET (FP) PO SCH (14:27)
[2020-09-22 14:34] VITALS: BP 144/82; PULSE 80
== END 2020-09-22 15:24 | disposition home or self-care (01) ==
LOC: JER 12:21 → INTOOBSV 20:29 → UNDOADMOB 20:29 → JERBED 20:29 → J5S 21:46 → JERBED 09-22 08:37 → J5S 09-22 08:37
PROVIDERS: ADMIT Internal Medicine; ATTEND Nurse Practitioner Acute Care
PROC: 3E03329 Introduction of Other Anti-infective into Peripheral Vein, Percutaneous Approach (ICD-10-PCS; principal; 2020-09-22)
PROC: 3E033GC Introduction of Other Therapeutic Substance into Peripheral Vein, Percutaneous Approach (ICD-10-PCS; 2020-09-22)
PROC: 3E033VG Introduction of Insulin into Peripheral Vein, Percutaneous Approach (ICD-10-PCS; 2020-09-22)
PROC: 0WHG03Z Insertion of Infusion Device into Peritoneal Cavity, Open Approach (ICD-10-PCS; 2020-09-22)
DX: T82.898A Other specified complication of vascular prosthetic devices, implants and grafts, initial encounter (principal); I12.0 Hypertensive chronic kidney disease with stage 5 chronic kidney disease or end stage renal disease; E11.22 Type 2 diabetes mellitus with diabetic chronic kidney disease; Z20.822 Contact with and (suspected) exposure to COVID-19; I10 Essential (primary) hypertension; Z29.9 Encounter for prophylactic measures, unspecified; E78.5 Hyperlipidemia, unspecified; E66.9 Obesity, unspecified; Z68.30 Body mass index [BMI] 30.0-30.9, adult; Z99.2 Dependence on renal dialysis; I73.9 Peripheral vascular disease, unspecified; X58.XXXA Exposure to other specified factors, initial encounter; Y93.89 Activity, other specified; Y92.89 Other specified places as the place of occurrence of the external cause
CPT/HCPCS: 36415; 71045-TC-FY; 76000-TC-FY; 80048; 80053; 82962; 85025; 85610; 86850; 86900; 86901; 93005; 93010; 93971; 94760; 96374; 96375; 99285-25; C9803; G0378; J1644; U0003; U0005

== ENCOUNTER 2020-12-18 04:29 | Day surgery (SDC) | payer OTHER ==
[2020-12-15 13:32] VITALS: BMI 30.8
[2020-12-18 07:53] LABS: CALCIUM 9.2 mg/dL (8.5-10.1)
[2020-12-18 07:54] LABS: BLOOD UREA NITROGEN 42.8 mg/dL (7-18)
[2020-12-18 07:57] LABS: CREATININE 6.9 mg/dL (0.55-1.3)
[2020-12-18] MEDS ORDERED: LIDOCAINE HCL 1%, 10 MG/ML (20ML VIAL) ONE (10:03)
[2020-12-18] MEDS ORDERED: HEPARIN NA (PORCINE) 5,000 UNITS/ML 1ML VIAL ONE ×2 (10:03→11:01)
[2020-12-18] MEDS ORDERED: BUPIVACAINE HCL/PF 0.5% (5MG/ML) 10 ML VIAL ONE (10:04)
[2020-12-18] MEDS ORDERED: PROPOFOL 20 ML ONE ×2 (10:07→10:52)
[2020-12-18] MEDS ORDERED: MIDAZOLAM HCL 2 MG/2 ML SINGLE DOSE VIAL ONE (10:07)
[2020-12-18] MEDS ORDERED: ceFAZolin SODIUM 1 GM VIAL IVPB ONE (11:16)
[2020-12-18] MEDS ORDERED: LIDOCAINE HCL 1%, 10 MG/ML (20ML VIAL) NR ONE (11:17)
[2020-12-18] MEDS ORDERED: oxyCODONE HCL 5 MG TABLET PO PRN (12:05)
[2020-12-18] MEDS ORDERED: ONDANSETRON 4 MG/2 ML VIAL IVPUSH PRN (12:05)
[2020-12-18] MEDS ORDERED: LABETALOL HCL 5 MG/1 ML (100MG/20 ML VIAL) IVPUSH ONE ×3 (12:05→12:20)
[2020-12-18 14:13] VITALS: BP 144/81; PULSE 70; TEMP 97.6
== END 2020-12-18 14:25 | disposition home or self-care (01) ==
LOC: JASU-SURG 04:29
PROVIDERS: ATTEND Surgery Vascular Surgery
PROC: B34HZZZ Ultrasonography of Right Upper Extremity Arteries (ICD-10-PCS; 2020-12-18)
PROC: 03CY3ZZ Extirpation of Matter from Upper Artery, Percutaneous Approach (ICD-10-PCS; 2020-12-18)
PROC: 03WY3JZ Revision of Synthetic Substitute in Upper Artery, Percutaneous Approach (ICD-10-PCS; principal; 2020-12-18 09:30)
DX: T82.858A Stenosis of other vascular prosthetic devices, implants and grafts, initial encounter (principal); I12.0 Hypertensive chronic kidney disease with stage 5 chronic kidney disease or end stage renal disease; E11.22 Type 2 diabetes mellitus with diabetic chronic kidney disease; N18.6 End stage renal disease; Z99.2 Dependence on renal dialysis
CPT/HCPCS: 36215; 36905; C1757; 36415; 76000-TC-FY; 80048; 82962; 94760; J1644

== ENCOUNTER 2021-04-19 04:35 | Day surgery (SDC) | payer OTHER ==
[2021-04-18 15:00] VITALS: BMI 30.8
[2021-04-19] MEDS ORDERED: LIDOCAINE HCL 1%, 10 MG/ML (20ML VIAL) ONE ×2 (08:28→11:27)
[2021-04-19] MEDS ORDERED: HEPARIN NA (PORCINE) 5,000 UNITS/ML 1ML VIAL ONE ×2 (08:28→11:28)
[2021-04-19] MEDS ORDERED: ceFAZolin SODIUM 1 GM VIAL IVPB ONE (13:00)
[2021-04-19] MEDS ORDERED: LIDOCAINE HCL 1%, 10 MG/ML (20ML VIAL) INF ONE (13:17)
[2021-04-19] MEDS ORDERED: DEXAMETHASONE SOD PHOSPHATE 4 MG/1 ML VIAL ONE (13:30)
[2021-04-19] MEDS ORDERED: ONDANSETRON 4 MG/2 ML VIAL ONE (13:30)
[2021-04-19] MEDS ORDERED: ONDANSETRON 4 MG/2 ML VIAL IVPUSH PRN (13:35)
[2021-04-19] MEDS ORDERED: DEXAMETHASONE SOD PHOSPHATE 4 MG/1 ML VIAL IVPUSH ONE (13:36)
[2021-04-19] MEDS ORDERED: METOCLOPRAMIDE HCL INJECTION 10 MG/2 ML VIAL IVPUSH ONE (14:10)
[2021-04-19] MEDS ORDERED: METOCLOPRAMIDE HCL INJECTION 10 MG/2 ML VIAL ONE (14:44)
[2021-04-19 15:39] VITALS: TEMP 97.9
[2021-04-19 15:58] VITALS: BP 132/81; PULSE 70
== END 2021-04-19 16:20 | disposition home or self-care (01) ==
LOC: JASU-SURG 04:35
PROVIDERS: ATTEND Surgery Vascular Surgery
PROC: 057D3DZ Dilation of Right Cephalic Vein with Intraluminal Device, Percutaneous Approach (ICD-10-PCS; principal; 2021-04-19 09:00)
DX: T82.858A Stenosis of other vascular prosthetic devices, implants and grafts, initial encounter (principal); Y84.1 Kidney dialysis as the cause of abnormal reaction of the patient, or of later complication, without mention of misadventure at the time of the procedure; Y92.239 Unspecified place in hospital as the place of occurrence of the external cause
CPT/HCPCS: 36415; 76000-TC-FY; 82962; 84132; 94760; C9803; J1644; U0003; U0005

== ENCOUNTER 2021-09-06 04:11 | Day surgery (SDC) | payer OTHER ==
[2021-09-03 15:19] VITALS: BMI 30.8
[2021-09-06] MEDS ORDERED: HEPARIN NA (PORCINE) 5,000 UNITS/ML 1ML VIAL ONE (07:07)
[2021-09-06] MEDS ORDERED: LIDOCAINE HCL 1%, 10 MG/ML (20ML VIAL) ONE (07:07)
[2021-09-06] MEDS ORDERED: KETAMINE HCL 200 MG/20 ML VIAL ONE (07:22)
[2021-09-06] MEDS ORDERED: PROPOFOL 20 ML ONE ×2 (07:22)
[2021-09-06] MEDS ORDERED: MIDAZOLAM HCL 2 MG/2 ML SINGLE DOSE VIAL ONE (07:22)
[2021-09-06] MEDS ORDERED: DEXMEDETOMIDINE HCL 200 MCG/2 ML IVPB ONE (07:27)
[2021-09-06] MEDS ORDERED: ceFAZolin SODIUM 1 GM VIAL IVPB ONE (08:15)
[2021-09-06] MEDS ORDERED: LIDOCAINE HCL 1%, 10 MG/ML (50 mL VIAL) INF ONE (08:26)
[2021-09-06] MEDS ORDERED: ONDANSETRON 4 MG/2 ML VIAL ONE ×3 (09:35→10:55)
[2021-09-06] MEDS ORDERED: ONDANSETRON 4 MG/2 ML VIAL IVPUSH PRN (09:40)
[2021-09-06 10:17] VITALS: TEMP 97.1
[2021-09-06] MEDS ORDERED: ONDANSETRON 4 MG/2 ML VIAL IVPUSH ONE (10:55)
[2021-09-06 11:12] VITALS: BP 111/64; PULSE 61
== END 2021-09-06 12:06 | disposition home or self-care (01) ==
LOC: JASU-SURG 04:11
PROVIDERS: ATTEND Surgery Vascular Surgery
PROC: B51WYZZ Fluoroscopy of Dialysis Shunt/Fistula using Other Contrast (ICD-10-PCS; 2021-09-06)
PROC: 057Y3ZZ Dilation of Upper Vein, Percutaneous Approach (ICD-10-PCS; principal; 2021-09-06 08:00)
DX: T82.858A Stenosis of other vascular prosthetic devices, implants and grafts, initial encounter (principal); I12.0 Hypertensive chronic kidney disease with stage 5 chronic kidney disease or end stage renal disease; E11.22 Type 2 diabetes mellitus with diabetic chronic kidney disease; N18.6 End stage renal disease; Z99.2 Dependence on renal dialysis
CPT/HCPCS: 36415; 76000-TC-FY; 82962; 84132; 94760; J1644

== ENCOUNTER 2021-12-02 12:36 | Inpatient (IN) | payer OTHER ==
[2021-12-02 13:22] LABS: BASO % 0.7 % (0-2.0); EOS % 2.6 % (0-4.5); HEMATOCRIT 34.1 % (35.4-49); HEMOGLOBIN 11.3 GM/dL (11.7-16.9); LYMPH % 23.4 % (8-40); MCH 32.7 pg (25.7-33.7); MCHC 33.1 g/dl (32.0-35.9); MEAN CELL VOLUME 98.7 fl (80-96); MEAN PLT VOLUME 7.9 fl (7.5-11.1); MONO % 6.7 % (3.8-10.2); NEUT % 66.6 % (42.8-82.8); PLATELET COUNT 176 10^3/uL (134-434); RBC 3.45 M/mm3 (4.00-5.60)
[2021-12-02 13:36] LABS: ACTIVATED PTT 38.7 SECONDS (25.2-36.5); INR 0.94 (0.83-1.09); PROTHROMBIN TIME (PATIENT) 10.8 SEC (9.7-13.0)
[2021-12-02 13:49] LABS: CHLORIDE 107 mmol/L (98-107); SODIUM 138 mmol/L (136-145)
[2021-12-02 13:51] LABS: ALBUMIN 3.6 g/dl (3.4-5.0); ANION GAP 7 MMOL/L (8-16); CALCIUM 9.6 mg/dL (8.5-10.1); CO2 24 mmol/L (21-32); GLUCOSE,RANDOM 116 mg/dL (74-106); MAGNESIUM 2.8 mg/dL (1.8-2.4)
[2021-12-02 13:52] LABS: BLOOD UREA NITROGEN 73.7 mg/dL (7-18)
[2021-12-02 13:54] LABS: PHOSPHOROUS 4.7 mg/dL (2.5-4.9); SGOT/AST 24 U/L (15-37); SGPT/ALT 20 U/L (13-61)
[2021-12-02 13:56] LABS: BILIRUBIN,TOTAL 0.4 mg/dL (0.2-1); TOT PROT 7.1 g/dl (6.4-8.2)
[2021-12-02 13:58] LABS: ALK PHOS 59 U/L (45-117)
[2021-12-02] MEDS ORDERED: SODIUM ZIRCONIUM CYCLOSILICATE (LOKELMA) 5 GM PACKET PO SCH (18:00)
[2021-12-03] MEDS ORDERED: SODIUM CHLORIDE 250 ML IV PRN ×3 (08:29→19:14)
[2021-12-03] MEDS: INSULIN SLIDING SCALE (NOVOLOG) 1 VIAL SQ SCH ×4 (08:47→21:54)
[2021-12-03 09:20] LABS: BASO % 0.6 % (0-2.0); EOS % 3.6 % (0-4.5); HEMATOCRIT 34.6 % (35.4-49); HEMOGLOBIN 11.7 GM/dL (11.7-16.9); LYMPH % 28.4 % (8-40); MCH 33.4 pg (25.7-33.7); MCHC 33.8 g/dl (32.0-35.9); MEAN PLT VOLUME 8.4 fl (7.5-11.1); MONO % 6.3 % (3.8-10.2); NEUT % 61.1 % (42.8-82.8); PLATELET COUNT 184 10^3/uL (134-434); RDW 14.2 % (11.9-15.9); WHITE BLOOD COUNT 4.9 K/mm3 (4.0-10.0)
[2021-12-03 09:24] LABS: INR 0.96 (0.83-1.09)
[2021-12-03 09:27] LABS: ACTIVATED PTT 35.5 SECONDS (25.2-36.5)
[2021-12-03 09:40] LABS: CHLORIDE 109 mmol/L (98-107); SODIUM 140 mmol/L (136-145)
[2021-12-03 09:43] LABS: ALBUMIN 3.5 g/dl (3.4-5.0); ANION GAP 6 MMOL/L (8-16); BLOOD UREA NITROGEN 76.6 mg/dL (7-18); CO2 25 mmol/L (21-32); GLUCOSE,RANDOM 99 mg/dL (74-106); MAGNESIUM 2.9 mg/dL (1.8-2.4)
[2021-12-03 09:47] LABS: PHOSPHOROUS 4.4 mg/dL (2.5-4.9); SGOT/AST 23 U/L (15-37); SGPT/ALT 19 U/L (13-61)
[2021-12-03 09:48] LABS: BILIRUBIN,TOTAL 0.4 mg/dL (0.2-1)
[2021-12-03 09:49] LABS: ALK PHOS 61 U/L (45-117)
[2021-12-03] MEDS ORDERED: PATIENT'S OWN MEDICATION (NON-FORMULARY) (Dorzolamide/Timolol/Pf [Dorzolamide-Timolol 2%-0 OU SCH (10:00)
[2021-12-03] MEDS ORDERED: SODIUM ZIRCONIUM CYCLOSILICATE (LOKELMA) 10 GM PACKET PO SCH (10:00)
[2021-12-03] MEDS ORDERED: LABETALOL HCL 200 MG TABLET (FP) PO SCH (10:00)
[2021-12-03] MEDS ORDERED: TIMOLOL 0.5% OPHTHALMIC SOL 5 ML BOTTLE OU SCH (10:00)
[2021-12-03] MEDS ORDERED: DORZOLAMIDE 2% HCL OPHTHALMIC SOLUTION 10 ML BOTTLE OU SCH (10:00)
[2021-12-03] MEDS ORDERED: LISINOPRIL 5 MG TABLET PO SCH (10:00)
[2021-12-03] MEDS ORDERED: amLODIPine BESYLATE 10 MG TABLET (FP) PO SCH (10:00)
[2021-12-03 10:04] LABS: CREATININE 9.3 mg/dL (0.55-1.3)
[2021-12-03] MEDS ORDERED: CALCIUM GLUCONATE 10% - 1,000 MG/10 ML VIAL IVPB ONE (11:48)
[2021-12-03 12:08] VITALS: BMI 30.3
[2021-12-03] MEDS ORDERED: HEPARIN NA (PORCINE) 5,000 UNITS/ML 1ML VIAL SQ SCH (14:00)
[2021-12-03] MEDS ORDERED: HEPARIN NA (PORCINE) 5,000 UNITS/ML 1ML VIAL ONE ×2 (15:34→18:19)
[2021-12-03] MEDS ORDERED: LIDOCAINE HCL 1%, 10 MG/ML (20ML VIAL) ONE (15:34)
[2021-12-03 17:27] LABS: CALCIUM 8.8 mg/dL (8.5-10.1)
[2021-12-03 17:31] LABS: BLOOD UREA NITROGEN 47.2 mg/dL (7-18); CREATININE 5.8 mg/dL (0.55-1.3)
[2021-12-03] MEDS ORDERED: ceFAZolin SODIUM 1 GM VIAL IVPB ONE (18:00)
[2021-12-03] MEDS ORDERED: ceFAZolin SODIUM 1 GM VIAL ONE ×2 (18:03)
[2021-12-03] MEDS ORDERED: LIDOCAINE HCL 1%, 10 MG/ML (20ML VIAL) NR ONE ×2 (18:15)
[2021-12-03] MEDS ORDERED: ONDANSETRON 4 MG/2 ML VIAL IVPUSH PRN (18:55)
[2021-12-03] MEDS ORDERED: LACTATED RINGERS SOLUTION 1,000 ML IV SCH (19:00)
[2021-12-03] MEDS: HEPARIN NA (PORCINE) 5,000 UNITS/ML 1ML VIAL SQ SCH (21:46)
[2021-12-03] MEDS: LABETALOL HCL 200 MG TABLET (FP) PO SCH (21:47)
[2021-12-03] MEDS: SODIUM ZIRCONIUM CYCLOSILICATE (LOKELMA) 10 GM PACKET PO SCH (21:48)
[2021-12-03] MEDS: DORZOLAMIDE 2% HCL OPHTHALMIC SOLUTION 10 ML BOTTLE OU SCH (21:54)
[2021-12-03] MEDS ORDERED: ATORVASTATIN CA 10 MG TABLET (FP) PO SCH ×2 (22:00)
[2021-12-03] MEDS ORDERED: LATANOPROST 0.005% OPHTH SOLN 2.5ML BOTTLE OU SCH ×2 (22:00)
[2021-12-04] MEDS: HEPARIN NA (PORCINE) 5,000 UNITS/ML 1ML VIAL SQ SCH ×2 (06:15→17:48)
[2021-12-04] MEDS ORDERED: AMMONIUM LACTATE 12% LOTION 225 GM BOTTLE TP PRN (07:45)
[2021-12-04] MEDS ORDERED: HEPARIN NA (PORCINE) 5,000 UNITS/ML 1ML VIAL IVPUSH ONE (08:00)
[2021-12-04] MEDS: INSULIN SLIDING SCALE (NOVOLOG) 1 VIAL SQ SCH ×3 (08:32→17:49)
[2021-12-04] MEDS: LABETALOL HCL 200 MG TABLET (FP) PO SCH (09:27)
[2021-12-04] MEDS: SODIUM ZIRCONIUM CYCLOSILICATE (LOKELMA) 10 GM PACKET PO SCH (09:28)
[2021-12-04] MEDS: DORZOLAMIDE 2% HCL OPHTHALMIC SOLUTION 10 ML BOTTLE OU SCH (09:32)
[2021-12-04 09:59] LABS: BASO % 0.7 % (0-2.0); EOS % 2.8 % (0-4.5); HEMATOCRIT 35.7 % (35.4-49); LYMPH % 22.3 % (8-40); MCH 33.2 pg (25.7-33.7); MCHC 33.6 g/dl (32.0-35.9); MEAN PLT VOLUME 8.6 fl (7.5-11.1); NEUT % 68.2 % (42.8-82.8); PLATELET COUNT 191 10^3/uL (134-434); RBC 3.61 M/mm3 (4.00-5.60); RDW 14.1 % (11.9-15.9); WHITE BLOOD COUNT 5.1 K/mm3 (4.0-10.0)
[2021-12-04] MEDS ORDERED: amLODIPine BESYLATE 10 MG TABLET (FP) PO SCH (10:00)
[2021-12-04] MEDS ORDERED: TIMOLOL 0.5% OPHTHALMIC SOL 5 ML BOTTLE OU SCH (10:00)
[2021-12-04 10:43] LABS: CHLORIDE 108 mmol/L (98-107); SODIUM 143 mmol/L (136-145)
[2021-12-04 10:52] LABS: ALBUMIN 3.7 g/dl (3.4-5.0); ANION GAP 7 MMOL/L (8-16); BLOOD UREA NITROGEN 65.4 mg/dL (7-18); CALCIUM 9.2 mg/dL (8.5-10.1); CO2 28 mmol/L (21-32); GLUCOSE,RANDOM 96 mg/dL (74-106); MAGNESIUM 2.6 mg/dL (1.8-2.4)
[2021-12-04 10:54] LABS: SGPT/ALT 18 U/L (13-61)
[2021-12-04 10:55] LABS: PHOSPHOROUS 5.4 mg/dL (2.5-4.9); SGOT/AST 25 U/L (15-37)
[2021-12-04 10:56] LABS: BILIRUBIN,TOTAL 0.5 mg/dL (0.2-1); TOT PROT 7.5 g/dl (6.4-8.2)
[2021-12-04 10:58] LABS: ALK PHOS 62 U/L (45-117)
[2021-12-04 11:06] LABS: CREATININE 8.2 mg/dL (0.55-1.3)
[2021-12-04 13:49] VITALS: RESP 18; TEMP 98
[2021-12-04 14:56] LABS: HEMATOCRIT 34.5 % (35.4-49); HEMOGLOBIN 11.4 GM/dL (11.7-16.9); MCH 32.7 pg (25.7-33.7); MCHC 33.1 g/dl (32.0-35.9); MEAN CELL VOLUME 98.8 fl (80-96); MEAN PLT VOLUME 8.8 fl (7.5-11.1); PLATELET COUNT 191 10^3/uL (134-434); RBC 3.49 M/mm3 (4.00-5.60); RDW 13.9 % (11.9-15.9); WHITE BLOOD COUNT 5.4 K/mm3 (4.0-10.0)
[2021-12-04 15:15] LABS: CHLORIDE 106 mmol/L (98-107); SODIUM 141 mmol/L (136-145)
[2021-12-04 15:16] LABS: CALCIUM 8.6 mg/dL (8.5-10.1)
[2021-12-04 15:17] LABS: ANION GAP 11 MMOL/L (8-16); BLOOD UREA NITROGEN 61.8 mg/dL (7-18); CO2 25 mmol/L (21-32); GLUCOSE,RANDOM 128 mg/dL (74-106)
[2021-12-04 15:20] LABS: CREATININE 8.1 mg/dL (0.55-1.3)
[2021-12-04 15:46] VITALS: PULSE 80
[2021-12-04 16:41] VITALS: BP 117/77
== END 2021-12-04 18:30 | disposition home or self-care (01) | DRG 252 ==
LOC: JER 12:36 → JERBED 14:21 → J7W 20:38
PROVIDERS: ADMIT Internal Medicine; ATTEND Internal Medicine
PROC: 5A1D70Z Performance of Urinary Filtration, Intermittent, Less than 6 Hours Per Day (ICD-10-PCS; 2021-12-03)
PROC: 05CD3ZZ Extirpation of Matter from Right Cephalic Vein, Percutaneous Approach (ICD-10-PCS; principal; 2021-12-03 17:50)
DX: T82.591A Other mechanical complication of surgically created arteriovenous shunt, initial encounter (principal); N18.6 End stage renal disease; I13.11 Hypertensive heart and chronic kidney disease without heart failure, with stage 5 chronic kidney disease, or end stage renal disease; E11.9 Type 2 diabetes mellitus without complications; Z99.2 Dependence on renal dialysis; E78.5 Hyperlipidemia, unspecified; E87.5 Hyperkalemia; N25.0 Renal osteodystrophy; Y83.9 Surgical procedure, unspecified as the cause of abnormal reaction of the patient, or of later complication, without mention of misadventure at the time of the procedure; L85.3 Xerosis cutis; B35.1 Tinea unguium
CPT/HCPCS: 36415; 76000-TC-FY; 80048; 80053; 82962; 83735; 84100; 85025; 85027; 85610; 85730; 86803; 86850; 86900; 86901; 87081; 87340; 93005; 93010; 94760; 99285-25; C9803-CS; J1644; U0003; U0005

== ENCOUNTER 2022-02-09 12:53 | Inpatient (IN) | payer OTHER ==
[2022-02-09 15:08] LABS: BASO % 0.4 % (0-2.0); EOS % 0.9 % (0-4.5); HEMATOCRIT 34.5 % (35.4-49); HEMOGLOBIN 11.1 GM/dL (11.7-16.9); LYMPH % 15.8 % (8-40); MCHC 32.2 g/dl (32.0-35.9); MEAN PLT VOLUME 10.3 fl (7.5-11.1); MONO % 4.7 % (3.8-10.2); NEUT % 78.2 % (42.8-82.8); PLATELET COUNT 191 10^3/uL (134-434); RBC 3.59 M/mm3 (4.00-5.60); RDW 13.3 % (11.9-15.9); WHITE BLOOD COUNT 11.1 K/mm3 (4.0-10.0)
[2022-02-09 15:11] LABS: INR 0.95 (0.83-1.09); PROTHROMBIN TIME (PATIENT) 10.9 SEC (9.7-13.0)
[2022-02-09 15:13] LABS: ACTIVATED PTT 34.8 SECONDS (25.2-36.5)
[2022-02-09 15:26] LABS: ALBUMIN 3.2 g/dl (3.4-5.0); BLOOD UREA NITROGEN 39.9 mg/dL (7-18); CALCIUM 8.9 mg/dL (8.5-10.1)
[2022-02-09 15:29] LABS: CREATININE 7.4 mg/dL (0.55-1.3)
[2022-02-09 15:31] LABS: BILIRUBIN,TOTAL 0.5 mg/dL (0.2-1); TOT PROT 7.6 g/dl (6.4-8.2)
[2022-02-09] MEDS ORDERED: PATIENT'S OWN MEDICATION (NON-FORMULARY) (Dorzolamide/Timolol/Pf [Dorzolamide-Timolol 2%-0 OU SCH (22:00)
[2022-02-09] MEDS ORDERED: HEPARIN NA (PORCINE) 5,000 UNITS/ML 1ML VIAL ONE (22:23)
[2022-02-09] MEDS ORDERED: ATORVASTATIN CA 10 MG TABLET (FP) ONE (22:23)
[2022-02-09] MEDS: HEPARIN NA (PORCINE) 5,000 UNITS/ML 1ML VIAL SQ SCH (22:29)
[2022-02-09] MEDS: ATORVASTATIN CA 10 MG TABLET (FP) PO SCH (22:30)
[2022-02-09] MEDS ORDERED: LABETALOL HCL 100 MG TABLET (FP) ONE (22:32)
[2022-02-09] MEDS: LABETALOL HCL 100 MG TABLET (FP) PO SCH (22:34)
[2022-02-10] MEDS: TIMOLOL 0.5% OPHTHALMIC SOL 5 ML BOTTLE OU SCH ×3 (00:56→22:23)
[2022-02-10] MEDS: DORZOLAMIDE 2% HCL OPHTHALMIC SOLUTION 10 ML BOTTLE OU SCH ×3 (00:57→22:23)
[2022-02-10] MEDS: LATANOPROST 0.005% OPHTH SOLN 2.5ML BOTTLE OU SCH ×2 (00:57→22:23)
[2022-02-10 01:18] LABS: CHLORIDE 103 mmol/L (98-107); SODIUM 138 mmol/L (136-145)
[2022-02-10 01:19] LABS: CALCIUM 8.9 mg/dL (8.5-10.1)
[2022-02-10 01:20] LABS: ANION GAP 8 MMOL/L (8-16); BLOOD UREA NITROGEN 41.4 mg/dL (7-18); CO2 27 mmol/L (21-32); GLUCOSE,RANDOM 126 mg/dL (74-106)
[2022-02-10 01:25] LABS: CREATININE 7.8 mg/dL (0.55-1.3)
[2022-02-10 06:46] VITALS: BMI 30.2
[2022-02-10 08:04] LABS: CHLORIDE 104 mmol/L (98-107); SODIUM 139 mmol/L (136-145)
[2022-02-10 08:05] LABS: CALCIUM 8.9 mg/dL (8.5-10.1)
[2022-02-10 08:06] LABS: ANION GAP 11 MMOL/L (8-16); BLOOD UREA NITROGEN 46.8 mg/dL (7-18); CO2 24 mmol/L (21-32); GLUCOSE,RANDOM 111 mg/dL (74-106)
[2022-02-10 08:35] LABS: CREATININE 7.7 mg/dL (0.55-1.3)
[2022-02-10] MEDS: SODIUM ZIRCONIUM CYCLOSILICATE (LOKELMA) 5 GM PACKET PO SCH (10:37)
[2022-02-10] MEDS: LABETALOL HCL 100 MG TABLET (FP) PO SCH ×2 (10:38→22:22)
[2022-02-10] MEDS: amLODIPine BESYLATE 10 MG TABLET (FP) PO SCH (10:38)
[2022-02-10] MEDS: LISINOPRIL 5 MG TABLET PO SCH (10:38)
[2022-02-10] MEDS: HEPARIN NA (PORCINE) 5,000 UNITS/ML 1ML VIAL SQ SCH ×2 (10:39→22:21)
[2022-02-10] MEDS: ATORVASTATIN CA 10 MG TABLET (FP) PO SCH (22:22)
[2022-02-11 08:40] LABS: BASO % 0.4 % (0-2.0); EOS % 1.7 % (0-4.5); HEMATOCRIT 32.5 % (35.4-49); HEMOGLOBIN 10.9 GM/dL (11.7-16.9); LYMPH % 20.9 % (8-40); MCHC 33.4 g/dl (32.0-35.9); MEAN PLT VOLUME 8.9 fl (7.5-11.1); MONO % 5.6 % (3.8-10.2); NEUT % 71.4 % (42.8-82.8); PLATELET COUNT 225 10^3/uL (134-434); RBC 3.39 M/mm3 (4.00-5.60); RDW 13.3 % (11.9-15.9); WHITE BLOOD COUNT 8.2 K/mm3 (4.0-10.0)
[2022-02-11 09:00] LABS: CHLORIDE 106 mmol/L (98-107); SODIUM 139 mmol/L (136-145)
[2022-02-11 09:04] LABS: CALCIUM 8.8 mg/dL (8.5-10.1)
[2022-02-11 09:05] LABS: ALBUMIN 3.1 g/dl (3.4-5.0); ANION GAP 10 MMOL/L (8-16); CO2 23 mmol/L (21-32); GLUCOSE,RANDOM 109 mg/dL (74-106)
[2022-02-11 09:07] LABS: SGPT/ALT 23 U/L (13-61)
[2022-02-11 09:08] LABS: SGOT/AST 23 U/L (15-37)
[2022-02-11 09:09] LABS: BILIRUBIN,TOTAL 0.6 mg/dL (0.2-1)
[2022-02-11 09:10] LABS: ALK PHOS 60 U/L (45-117)
[2022-02-11 09:20] LABS: CREATININE 8.3 mg/dL (0.55-1.3)
[2022-02-11] MEDS ORDERED: SODIUM CHLORIDE 250 ML IV PRN (11:47)
[2022-02-11] MEDS: SODIUM ZIRCONIUM CYCLOSILICATE (LOKELMA) 5 GM PACKET PO SCH ×3 (11:55→23:15)
[2022-02-11] MEDS: HEPARIN NA (PORCINE) 5,000 UNITS/ML 1ML VIAL SQ SCH ×2 (11:56→23:15)
[2022-02-11] MEDS: LABETALOL HCL 100 MG TABLET (FP) PO SCH ×2 (11:56→23:16)
[2022-02-11] MEDS: amLODIPine BESYLATE 10 MG TABLET (FP) PO SCH (11:57)
[2022-02-11] MEDS: TIMOLOL 0.5% OPHTHALMIC SOL 5 ML BOTTLE OU SCH ×2 (11:59→23:17)
[2022-02-11] MEDS: DORZOLAMIDE 2% HCL OPHTHALMIC SOLUTION 10 ML BOTTLE OU SCH ×2 (11:59→23:17)
[2022-02-11] MEDS: LISINOPRIL 5 MG TABLET PO SCH ×2 (11:59→12:05)
[2022-02-11] MEDS ORDERED: LIDOCAINE HCL 1%, 10 MG/ML (20ML VIAL) ONE ×2 (14:08→14:57)
[2022-02-11] MEDS ORDERED: HEPARIN NA (PORCINE) 5,000 UNITS/ML 1ML VIAL ONE (14:09)
[2022-02-11] MEDS ORDERED: FENTANYL CITRATE/PF 50 MCG/ML VIAL ONE (14:17)
[2022-02-11] MEDS ORDERED: MIDAZOLAM HCL 2 MG/2 ML SINGLE DOSE VIAL ONE (14:17)
[2022-02-11] MEDS ORDERED: ceFAZolin SODIUM 1 GM VIAL IVPB ONE (15:05)
[2022-02-11] MEDS ORDERED: LIDOCAINE HCL 1%, 10 MG/ML (20ML VIAL) NR ONE ×3 (15:10)
[2022-02-11] MEDS ORDERED: HEPARIN NA (PORCINE) 5,000 UNITS/ML 1ML VIAL SQ ONE ×2 (15:12)
[2022-02-11] MEDS: ATORVASTATIN CA 10 MG TABLET (FP) PO SCH (23:16)
[2022-02-11] MEDS: LATANOPROST 0.005% OPHTH SOLN 2.5ML BOTTLE OU SCH (23:18)
[2022-02-12] MEDS: amLODIPine BESYLATE 10 MG TABLET (FP) PO SCH (10:16)
[2022-02-12] MEDS: SODIUM ZIRCONIUM CYCLOSILICATE (LOKELMA) 5 GM PACKET PO SCH ×2 (10:16→10:21)
[2022-02-12] MEDS: LABETALOL HCL 100 MG TABLET (FP) PO SCH (10:16)
[2022-02-12] MEDS: HEPARIN NA (PORCINE) 5,000 UNITS/ML 1ML VIAL SQ SCH (10:16)
[2022-02-12] MEDS: TIMOLOL 0.5% OPHTHALMIC SOL 5 ML BOTTLE OU SCH (10:22)
[2022-02-12] MEDS: DORZOLAMIDE 2% HCL OPHTHALMIC SOLUTION 10 ML BOTTLE OU SCH (10:22)
[2022-02-12 17:59] LABS: HEMATOCRIT 31.8 % (35.4-49); HEMOGLOBIN 10.5 GM/dL (11.7-16.9); MCH 31.5 pg (25.7-33.7); MCHC 32.8 g/dl (32.0-35.9); MEAN PLT VOLUME 9.4 fl (7.5-11.1); PLATELET COUNT 231 10^3/uL (134-434); RBC 3.32 M/mm3 (4.00-5.60); RDW 13.4 % (11.9-15.9); WHITE BLOOD COUNT 6.4 K/mm3 (4.0-10.0)
[2022-02-12 18:26] LABS: CHLORIDE 104 mmol/L (98-107); SODIUM 140 mmol/L (136-145)
[2022-02-12 18:28] LABS: ANION GAP 10 MMOL/L (8-16); CALCIUM 8.6 mg/dL (8.5-10.1); CO2 25 mmol/L (21-32); GLUCOSE,RANDOM 102 mg/dL (74-106)
[2022-02-12 18:32] LABS: CREATININE 8.2 mg/dL (0.55-1.3)
[2022-02-12 20:20] VITALS: RESP 18
[2022-02-12 21:00] VITALS: BP 125/73; PULSE 72; TEMP 98.7
== END 2022-02-12 20:50 | disposition home or self-care (01) | DRG 314 ==
LOC: JER 12:53 → JERBED 15:49 → J7W 02-10 01:40
PROVIDERS: ADMIT Internal Medicine; ATTEND Internal Medicine
PROC: B548ZZA Ultrasonography of Superior Vena Cava, Guidance (ICD-10-PCS; 2022-02-11)
PROC: 02H633Z Insertion of Infusion Device into Right Atrium, Percutaneous Approach (ICD-10-PCS; principal; 2022-02-11 14:00)
PROC: 5A1D70Z Performance of Urinary Filtration, Intermittent, Less than 6 Hours Per Day (ICD-10-PCS; 2022-02-12)
DX: T82.898A Other specified complication of vascular prosthetic devices, implants and grafts, initial encounter (principal); N18.6 End stage renal disease; U07.1 COVID-19; I12.0 Hypertensive chronic kidney disease with stage 5 chronic kidney disease or end stage renal disease; Y83.8 Other surgical procedures as the cause of abnormal reaction of the patient, or of later complication, without mention of misadventure at the time of the procedure; E11.22 Type 2 diabetes mellitus with diabetic chronic kidney disease; Z99.2 Dependence on renal dialysis; E78.00 Pure hypercholesterolemia, unspecified; Z79.84 Long term (current) use of oral hypoglycemic drugs; D63.1 Anemia in chronic kidney disease
CPT/HCPCS: 0241U-QW; 36415; 71045-TC-FY; 76000-TC-FY; 80048; 80053; 82962; 83735; 84100; 85025; 85027; 85610; 85730; 86803; 86850; 86900; 86901; 87340; 93005; 93010; 93971; 94760; 99285-25; C1750; C1757; J1644

== ENCOUNTER 2022-04-11 05:06 | Day surgery (SDC) | payer OTHER ==
[2022-04-08 14:25] VITALS: BMI 30.8
[2022-04-11] MEDS ORDERED: LIDOCAINE HCL 1%, 10 MG/ML (20ML VIAL) ONE (16:04)
[2022-04-11] MEDS ORDERED: HEPARIN NA (PORCINE) 5,000 UNITS/ML 1ML VIAL ONE (16:04)
[2022-04-11] MEDS ORDERED: POVIDONE-IODINE OINTMENT 10% - 28.4 GM TUBE ONE (16:04)
[2022-04-11] MEDS ORDERED: ONDANSETRON 4 MG/2 ML VIAL IVPUSH PRN (16:23)
[2022-04-11] MEDS ORDERED: oxyCODONE HCL 5 MG TABLET PO PRN (16:23)
[2022-04-11] MEDS ORDERED: PROPOFOL 40 ML ONE (16:35)
[2022-04-11] MEDS ORDERED: MIDAZOLAM HCL 2 MG/2 ML SINGLE DOSE VIAL ONE (16:36)
[2022-04-11] MEDS ORDERED: ceFAZolin SODIUM 1 GM VIAL ONE (16:55)
[2022-04-11] MEDS ORDERED: ONDANSETRON 4 MG/2 ML VIAL ONE (16:55)
[2022-04-11] MEDS ORDERED: DEXAMETHASONE SOD PHOSPHATE 4 MG/1 ML VIAL ONE (16:55)
[2022-04-11] MEDS ORDERED: LIDOCAINE HCL 1%, 10 MG/ML (20ML VIAL) NR ONE ×2 (17:11)
[2022-04-11] MEDS ORDERED: PROPOFOL 20 ML ONE (17:42)
[2022-04-11] MEDS ORDERED: POVIDONE-IODINE OINTMENT 10% - 28.4 GM TUBE TP ONE (18:25)
[2022-04-11 19:34] VITALS: BP 132/72; PULSE 75; RESP 16; TEMP 97.5
== END 2022-04-11 19:55 | disposition home or self-care (01) ==
LOC: JASU-SURG 05:06
PROVIDERS: ATTEND Surgery Vascular Surgery
PROC: 03170ZD Bypass Right Brachial Artery to Upper Arm Vein, Open Approach (ICD-10-PCS; principal; 2022-04-11 15:00)
DX: I12.0 Hypertensive chronic kidney disease with stage 5 chronic kidney disease or end stage renal disease (principal); E11.22 Type 2 diabetes mellitus with diabetic chronic kidney disease; N18.6 End stage renal disease; Z99.2 Dependence on renal dialysis
CPT/HCPCS: 82962; 94760; J1644

== ENCOUNTER 2022-06-06 04:05 | Day surgery (SDC) | payer OTHER ==
[2022-06-04 17:26] VITALS: BMI 31.5
[2022-06-06] MEDS ORDERED: MIDAZOLAM HCL 2 MG/2 ML SINGLE DOSE VIAL ONE (09:23)
[2022-06-06] MEDS ORDERED: PROPOFOL 20 ML ONE (09:23)
[2022-06-06] MEDS ORDERED: ceFAZolin SODIUM 1 GM VIAL IVPB ONE (09:31)
[2022-06-06] MEDS ORDERED: LIDOCAINE 1% P/F 10 MG/ML VIAL INF ONE ×2 (09:40)
[2022-06-06] MEDS ORDERED: LIDOCAINE HCL 1%, 10 MG/ML (10ML VIAL) MDV ONE (09:51)
[2022-06-06] MEDS ORDERED: ONDANSETRON 4 MG/2 ML VIAL IVPUSH PRN (11:16)
[2022-06-06] MEDS ORDERED: oxyCODONE HCL 5 MG TABLET PO PRN (11:16)
[2022-06-06 13:00] VITALS: BP 125/62; PULSE 76; RESP 18; TEMP 98.7
== END 2022-06-06 13:00 | disposition home or self-care (01) ==
LOC: JASU-SURG 04:05
PROVIDERS: ATTEND Surgery Vascular Surgery
PROC: 05SC0ZZ Reposition Left Basilic Vein, Open Approach (ICD-10-PCS; principal; 2022-06-06 09:00)
DX: E11.22 Type 2 diabetes mellitus with diabetic chronic kidney disease (principal); I12.0 Hypertensive chronic kidney disease with stage 5 chronic kidney disease or end stage renal disease; N18.6 End stage renal disease; I25.10 Atherosclerotic heart disease of native coronary artery without angina pectoris
CPT/HCPCS: 36415; 82947; 84132; 94760